=== PATIENT | female | born 1985 | race Caucasian/White ===

== ENCOUNTER 2016-07-24 17:10 | Emergency (ER) | payer SELFPAY ==
[2016-07-24 17:20] VITALS: BP 133/81
[2016-07-24] MEDS ORDERED: Ketorolac 60 MG/2 ML SDV IM ONE (17:24)
--- NOTE | 2016-07-24 17:31 | EDM.PDOC ---
ED HPI Trauma - General Chief Complaint: Upper Extremity Injury/Pain Stated Complaint: PAIN LT WRIST/HAND Time Seen by Provider: 07/24/16 17:15 - History of Present Illness INITIAL COMMENTS - FREE TEXT/NARRATIVE: HISTORY AND PHYSICAL: History of present illness: The patient is a 31-year-old female who presents with complaints of pain to the dorsal aspect of her wrist that started again over the last several days she has had an episode several months ago of the same. The patient denies any injuries several months ago or recently but says that she had the pain during the first episode and it seemed to go away in its own after several days so she did not seek treatment. Patient is right-hand dominant. 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 She does lift her 2 small children frequently and thought that maybe she inadvertently injured herself doing that. Patient came in today with several days of recurrent pain to the dorsal aspect of the left wrist that does not radiate to the hand or of the forearm mostly because she was unable to burr picker her child without pain. She has no neurosensory changes in her hands and no proximal elbow humerus or shoulder pain. She has no systemic complaints of fever chills chest pain or shortness of breath. The patient tried Tylenol only for the pain. Review of systems: As per history of present illness and below otherwise all systems reviewed and negative. Past medical history: As per history of present illness and as reviewed below otherwise noncontributory. Surgical history: As per history of present illness and as reviewed below otherwise noncontributory. Social history: No reported history of drug or alcohol abuse. Family history: As per history of present illness and as reviewed below otherwise noncontributory. Physical exam: General: Well-developed overweight female who is nontoxic and whose vital signs of been reviewed by me. HEENT: Atraumatic, normocephalic, negative for conjunctival pallor or scleral icterus, mucous membranes moist, throat clear, neck supple, nontender, trachea midline. Lungs: Clear to auscultation, breath sounds equal bilaterally, chest nontender. Heart: S1S2, regular rate and rhythm no overt murmurs Abdomen: Soft, nondistended, nontender. NABS .Genitourinary: Deferred. Rectal: Deferred. Extremities: Atraumatic appearing with tenderness to palpation of the dorsal aspect of the wrist without gross soft tissue swelling warmth ecchymosis or crepitus. Neurovascular is intact in the hand and there are no bony deformities appreciated in the wrist or hand. The proximal forearm elbow humerus and shoulder bony architecture is intact and nontender and the soft tissue is nonswollen and nontender. With passive flexion and extension of the wrist the pain is exacerbated with minor range of motion. The patient is able to laterally and medially move the hand more easily without discomfort., Neurovascular unremarkable. Neuro: Awake, alert, oriented. Cranial nerves II through XII unremarkable. Cerebellum unremarkable. Motor and sensory unremarkable throughout. Exam nonfocal. Diagnostics: X-ray left wrist Therapeutics: Toradol--- patient states that although she is allergic to Celebrex she can take Motrin velcro wrist splint Impression: Episodic left wrist pain tetiology unclear Definitive disposition and diagnosis as appropriate pending reevaluation and review of above. Allergies/ADRs: Allergies celecoxib [From Celebrex] Allergy (Verified 07/24/16 17:20) Hives clindamycin Allergy (Verified 07/24/16 17:20) Hives tramadol HCl [From Ultram] Allergy (Verified 07/24/16 17:20) Seizure Home Medications: Ambulatory Orders . [No Known Home Meds] 07/24/16 [Confirmed 07/24/16] Past Medical History - Past Health History Medical/Surgical History: Denies Medical/Surgical History HEENT History: Reports: None Cardiovascular History: Reports: None Respiratory History: Reports: None Gastrointestinal History: Reports: None Genitourinary History: Reports: None WHEEL FITTER History: Reports: 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, Musculoskeletal History: Reports: None Neurological History: Reports: None Psychiatric History: Reports: Addiction, Anxiety, Depression Endocrine/Metabolic History: Reports: None Dermatologic History: Reports: None - Infectious Disease History Infectious Disease History: Reports: Chicken pox Other Infectious Disease History: childhood - Past Surgical History Head Surgeries/Procedures: Reports: None HEENT Surgical History: Reports: None Cardiovascular Surgical History: Reports: None Female Surgical History: Reports: D&C Other Female Surgeries/Procedures: endometriosis Social & Family History - Family History Family Medical History: Noncontributory OBGYN: Reports: 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 Psychiatric: Reports: Anxiety, Depression - Tobacco Use Smoking Status *Q: Current Every Day Smoker Years of Tobacco use: 9 Packs/Tins Daily: 0.3 Second Hand Smoke Exposure: Yes - Caffeine Use Caffeine Use: Reports: None - Recreational Drug Use Recreational Drug Use: No Drug Use in Last 12 Months: No Recreational Drug Type: Reports: Other (see below) Recreational Drug Use Frequency: Not Used In Over 6 Months Recreational Drug Last Use: 2012 Review of Systems - Review of Systems Review Of Systems: ROS reveals no pertinent complaints other than HPI. Trauma Exam - Physical Exam Exam: See Below (See dictation) Course - Vital Signs Last Recorded V/S: Last Vital Signs Temp 36.2 C 07/24/16 17:17 Pulse 102 H 07/24/16 17:17 Resp 16 07/24/16 17:17 BP 133/81 07/24/16 17:17 Pulse Ox 96 07/24/16 17:17 - Orders/Labs/Meds Orders: Active Orders 24 hr Category Date Time Status Wrist Comp Min 3V Lt [CR] Stat Exams 07/24/16 17:24 Taken DME for Discharge [COMM] Stat Oth 07/24/16 18:08 Ordered Meds: Medications Discontinued Medications Generic Name Dose Route Start Last Admin Trade Name Katina PRN Reason Stop Dose Admin Ketorolac Tromethamine 60 mg 07/24/16 17:24 07/24/16 17:29 Toradol IM 07/24/16 17:25 60 mg ONETIME ONE Administration Departure - Departure Time of Disposition: 18:09 Disposition: Home, Self-Care 01 Condition: good Clinical Impression: Wrist pain, left Forms: ED Department Discharge Additional Instructions: The following information is given to patients seen in the emergency department who are being discharged to home. This information is to outline your options for follow-up care. We provide all patients seen in our emergency department with a follow-up referral. The need for follow-up, as well as the timing and circumstances, are variable depending upon the specifics of your emergency department visit. If you don't have a primary care physician on staff, we will provide you with a referral. We always advise you to contact your personal physician following an emergency department visit to inform them of the circumstance of the visit and for follow-up with them and/or the need for any referrals to a consulting specialist. The emergency department will also refer you to a specialist when appropriate. This referral assures that you have the opportunity for followup care with a specialist. All of these measure are taken in an effort to provide you with optimal care, which includes your followup. Under all circumstances we always encourage you to contact your private physician who remains a resource for coordinating your care. When calling for followup care, please make the office aware that this follow-up is from your recent emergency room visit. If for any reason you are refused follow-up, please contact the [facility] emergency department at and ask to speak to the emergency department charge nurse. [facility]--Orthopedic clinic Professional [address] [id number] Please wear splints at all times until you're followed up in the clinic. Ice and elevate as much as possible and use [id number] Tylenol or ibuprofen for pain. Please call and schedule followup with orthopedics Department and return to ER as needed and as discussed - My Orders Last 24 Hours: My Active Orders 07/24/16 17:24 Wrist Comp Min 3V Lt [CR] Stat 07/24/16 18:08 DME for Discharge [COMM] Stat - Assessment/Plan Last 24 Hours: My Active Orders 07/24/16 17:24 Wrist Comp Min 3V Lt [CR] Stat 07/24/16 18:08 DME for Discharge [COMM] Stat
--- NOTE | 2016-07-25 10:41 | CR ---
EXAM DATE: 07/24/16 PATIENT'S AGE: 31 Patient: ERIC BUSTAMANTE Facility: [place], [place] Site . Site : 1985 Study: XRay Extremity wrist [id number]/1/2017 5:48:27 PM Ordering Physician: Jose Aguilar Final Report: INDICATION: pain dorsal wrist, no injury TECHNIQUE: Wrist radiograph 3 views left COMPARISON: None FINDINGS: Bones: Alignment is normal. No acute fractures or aggressive bone lesions identified. In particular, the scaphoid is unremarkable in appearance by radiography. Joint spaces: Unremarkable. The carpal rows are intact. Soft tissues: Unremarkable. No radiopaque foreign bodies are identified. IMPRESSION: 1. No acute osseous injuries are noted. Dictated by: Singh Rebollar MD @ 07/24/2016 17:54:31 (Electronic Signature) Report Signed by Proxy and Original Signed Document filed in the Medical Record. MTDD
== END 2016-07-24 18:23 | disposition home or self-care (01) ==
LOC: MW.ED 17:10
DX: M25.532 Pain in left wrist (principal); F17.210 Nicotine dependence, cigarettes, uncomplicated; Z88.6 Allergy status to analgesic agent; Z88.8 Allergy status to other drugs, medicaments and biological substances
CPT/HCPCS: 73110; 96372; 99283; J1885

== ENCOUNTER 2016-09-12 12:48 | Emergency (ER) | payer MEDICAID, SELFPAY ==
[2016-09-12] MEDS ORDERED: Ketorolac 60 MG/2 ML SDV IM ONE (13:09)
[2016-09-12 13:17] VITALS: BP 175/93
--- NOTE | 2016-09-12 13:21 | EDM.PDOC ---
ED HPI ENT - General Chief Complaint: ENT Problem Stated Complaint: HEADACHE Time Seen by Provider: 09/12/16 13:18 Source of Information: Reports: Patient History Limitations: Reports: No limitations - History of Present Illness INITIAL COMMENTS - FREE TEXT/NARRATIVE: History of present illness: [31-year-old female complaining of acute dental pain into the right lower jaw in the approximate region of 30-31 patient indicates that she feels there it might be an abscess because there swelling and the pain is now beginning to radiate directly bite at tooth. Patient attempted to get into a dentist was unable to be seen until next week at the earliest and desires some treatment to prevent the infection from spreading] Review of systems: As per history of present illness and below otherwise all systems reviewed and negative. Past medical history: As per history of present illness and as reviewed below otherwise noncontributory. Surgical history: As per history of present illness and as reviewed below otherwise noncontributory. Social history: No reported history of drug or alcohol abuse. Family history: As per history of present illness and as reviewed below otherwise noncontributory. Physical exam: HEENT: Atraumatic, normocephalic, pupils reactive, negative for conjunctival pallor or scleral icterus, mucous membranes moist, throat clear, neck supple, nontender, trachea midline. Lungs: Clear to auscultation, breath sounds equal bilaterally, chest nontender. Heart: S1S2, regular, negative for clicks, rubs, or JVD. Abdomen: Soft, nondistended, nontender. Negative for masses or hepatosplenomegaly. Negative for costovertebral tenderness. Pelvis: Stable nontender. Genitourinary: Deferred. Rectal: Deferred. Extremities: Atraumatic, negative for cords or calf pain. Neurovascular unremarkable. Neuro: Awake, alert, oriented. Cranial nerves II through XII unremarkable. Cerebellum unremarkable. Motor and sensory unremarkable throughout. Exam nonfocal. Global assessment is benign save a fractured tooth in the region of 30-31 and has existing filling but the tooth is cracked along the filling site. Now there is swelling and pain at the gum and patient is desiring some medication for same. Exam is consistent with age Diagnostics: [] Therapeutics: [] Impression: [Dental caries] Plan: [Antibiotics brief run of pain med] Definitive disposition and diagnosis as appropriate pending reevaluation and review of above. - Related Data Allergies/ADRs: Allergies Allergy/AdvReac Type Severity Reaction Status Date / Time celecoxib [From Celebrex] Allergy Hives Verified 09/12/16 13:18 clindamycin Allergy Hives Verified 09/12/16 13:18 tramadol HCl [From Ultram] Allergy Seizure Verified 09/12/16 13:18 Home Meds: Home Meds . 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, Musculoskeletal History: Reports: None Neurological History: Reports: None Psychiatric History: Reports: Addiction, Anxiety, Depression Endocrine/Metabolic History: Reports: None Dermatologic History: Reports: None - Infectious Disease History Infectious Disease History: Reports: Chicken pox Other Infectious Disease History: childhood - Past Surgical History Head Surgeries/Procedures: Reports: None HEENT Surgical History: Reports: None Cardiovascular Surgical History: Reports: None Female Surgical History: Reports: D&C Other Female Surgeries/Procedures: endometriosis Social & Family History - Family History Family Medical History: Noncontributory OBGYN: Reports: 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 Psychiatric: Reports: Anxiety, Depression - Tobacco Use Smoking Status *Q: Current Every Day Smoker Years of Tobacco use: 9 Packs/Tins Daily: 0.3 Second Hand Smoke Exposure: Yes - Caffeine Use Caffeine Use: Reports: None - Recreational Drug Use Recreational Drug Use: No Drug Use in Last 12 Months: No Recreational Drug Type: Reports: Other (see below) Recreational Drug Use Frequency: Not Used In Over 6 Months Recreational Drug Last Use: 2012 ED ROS ENT - Review of Systems Review Of Systems: See Below (History of present illness) ED EXAM, ENT - Physical Exam Exam: See Below (History of present illness) Course - Vital Signs Last Recorded V/S: Last Vital Signs Temp 36.7 C 09/12/16 13:16 Pulse 107 H 09/12/16 13:16 Resp 18 09/12/16 13:16 BP 175/93 H 09/12/16 13:16 Pulse Ox 98 09/12/16 13:16 - Orders/Labs/Meds Meds: Medications Discontinued Medications Generic Name Dose Route Start Last Admin Trade Name Freq PRN Reason Stop Dose Admin Ketorolac Tromethamine 60 mg 09/12/16 13:09 Toradol IM 09/12/16 13:10 ONETIME ONE Departure - Departure Time of Disposition: 13:20 Disposition: Home, Self-Care 01 Condition: good Clinical Impression: Dental abscess Forms: ED Department Discharge Additional Instructions: The following information is given to patients seen in the emergency department who are being discharged to home. This information is to outline your options for follow-up care. We provide all patients seen in our emergency department with a follow-up referral. The need for follow-up, as well as the timing and circumstances, are variable depending upon the specifics of your emergency department visit. If you don't have a primary care physician on staff, we will provide you with a referral. We always advise you to contact your personal physician following an emergency department visit to inform them of the circumstance of the visit and for follow-up with them and/or the need for any referrals to a consulting specialist. The emergency department will also refer you to a specialist when appropriate. This referral assures that you have the opportunity for follow-up care with a specialist. All of these measure are taken in an effort to provide you with optimal care, which includes your follow-up. Under all circumstances we always encourage you to contact your private physician who remains a resource for coordinating your care. When calling for follow-up care, please make the office aware that this follow-up is from your recent emergency room visit. If for any reason you are refused follow-up, please contact the [facility] Emergency Department at and asked to speak to the emergency department charge nurse. Medication as directed Followup with the dentist as soon as possible return to ED as needed as discussed
== END 2016-09-12 13:49 | disposition home or self-care (01) ==
LOC: MW.ED 12:48
DX: K04.7 Periapical abscess without sinus (principal); K02.9 Dental caries, unspecified; F41.8 Other specified anxiety disorders; F17.210 Nicotine dependence, cigarettes, uncomplicated; Z88.1 Allergy status to other antibiotic agents; Z88.5 Allergy status to narcotic agent
CPT/HCPCS: 96372; 99283; J1885

== ENCOUNTER 2016-10-30 13:39 | Emergency (ER) | payer SELFPAY ==
--- NOTE | 2016-10-30 14:41 | EDM.PDOC ---
ED HPI GENERAL MEDICAL PROBLEM - General Chief Complaint: ENT Problem Stated Complaint: RIGHT EARACHE Time Seen by Provider: 10/30/16 14:40 Source of Information: Reports: Patient History Limitations: Reports: No Limitations - History of Present Illness INITIAL COMMENTS - FREE TEXT/NARRATIVE: HISTORY AND PHYSICAL: []31-year-old female presenting with right ear pain that started 2 hours ago now is extending over her whole head History of Present Illness: [2 Hours ago pain started, denies any trauma] Review of Systems: As per history of present illness and below otherwise all systems reviewed and negative. Past medical history: As per history of present illness and as reviewed below otherwise noncontributory. Surgical history: As per history of present illness and as reviewed below otherwise noncontributory. Social history: No reported history of drug or alcohol abuse. Family history: As per history of present illness and as reviewed below otherwise noncontributory. Physical exam: Alert and oriented female who looks slightly distressed holding her hand over her right ear HEENT: Atraumatic, normocehpalic, pupils reactive, negative for conjunctival pallor or scleral icterus, mucous membranes moist, throat clear, neck supple, nontender, trachea midline. Tympanic membrane without erythema posterior canal with a small cystic area minor pustular top Lungs: Clear to auscultation, breath sounds equal bilaterally, chest non tender. Heart: S1S2, regular, negative for clicks, rubs, or JVD. Abdomen: Soft, nondistended, nontender. Negative for masses or hepatossplenmegaly. Negative for costovertebral tenderness. Pelvis: Stable nontender. Genitourinary: Deferred. Rectal: Deferred Extremities: Atraumatic, negative for cords or calf pain. Neurovascular unremarkable. Neuro: Awake, alert, oriented. Cranial nerves II through XII unremarkable. Cerebellum unremarkable. Motor and sensory unremarkable throughout. Exam nonfocal. Diagnostics: [] Therapeutics: [] Impression: [Lesion auditory canal] Plan: [Cephalexin antibiotic therapy Cortisporin Otic drops ] Definitive disposition and diagnosis as appropriate pending reevaluation and review of above. Onset: Today, Sudden Duration: Hour(s): (2) Location: Reports: Other (right ear) Quality: Reports: Ache, Stabbing Severity: Moderate Improves with: Reports: None Worsens with: Reports: None - Related Data Allergies Allergy/AdvReac Type Severity Reaction Status Date / Time celecoxib [From Celebrex] Allergy Hives Verified 10/30/16 14:25 clindamycin Allergy Hives Verified 10/30/16 14:25 tramadol HCl [From Ultram] Allergy Seizure Verified 10/30/16 14:25 Home Meds: Home Meds Cephalexin [IMW: Cephalexin] 500 mg PO TID #30 cap 10/30/16 [Rx] Hydrocort/Neomycin/Polymyxin B [Cortisporin Otic Soln] 10 ml EARRT Q6HR #1 bottle 10/30/16 [Rx] Past Medical History - Past Health History Medical/Surgical History: Denies Medical/Surgical History HEENT History: Reports: None Cardiovascular History: Reports: None Respiratory History: Reports: None Gastrointestinal History: Reports: None Genitourinary History: Reports: None 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, Musculoskeletal History: Reports: None Neurological History: Reports: None Psychiatric History: Reports: Addiction, Anxiety, Depression Endocrine/Metabolic History: Reports: None Dermatologic History: Reports: None - Infectious Disease History Infectious Disease History: Reports: Chicken Pox Other Infectious Disease History: childhood - Past Surgical History Head Surgeries/Procedures: Reports: None HEENT Surgical History: Reports: None Cardiovascular Surgical History: Reports: None Female Surgical History: Reports: D&C Other Female Surgeries/Procedures: endometriosis Social & Family History - Family History Family Medical History: Noncontributory OBGYN: Reports: 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 Psychiatric: Reports: Anxiety, Depression - Tobacco Use Smoking Status *Q: Current Every Day Smoker Years of Tobacco use: 9 Packs/Tins Daily: 0.3 Second Hand Smoke Exposure: Yes - Caffeine Use Caffeine Use: Reports: None - Recreational Drug Use Recreational Drug Use: No Drug Use in Last 12 Months: No Recreational Drug Type: Reports: Other (see below) Recreational Drug Use Frequency: Not Used In Over 6 Months Recreational Drug Last Use: 2012 ED ROS ENT - Review of Systems Review Of Systems: ROS reveals no pertinent complaints other than HPI. ED EXAM, ENT - Physical Exam Exam: See Below (see dictation) Departure - Departure Time of Disposition: 14:44 Disposition: Home, Self-Care 01 Condition: good Clinical Impression: Otitis externa Qualifiers: Otitis externa type: unspecified type Chronicity: acute Laterality: right Qualified Code(s): H60.501 - Unspecified acute noninfective otitis externa, right ear - Discharge Information Prescriptions: Hydrocort/Neomycin/Polymyxin B [Cortisporin Otic Soln] 10 ml EARRT Q6HR #1 bottle Cephalexin [IMW: Cephalexin] 500 mg PO TID #30 cap Forms: ED Department Discharge Additional Instructions: The following information is given to patients seen in the emergency department who are being discharged to home. This information is to outline your options for follow-up care. We provide all patients seen in our emergency department with a follow-up referral. The need for follow-up, as well as the timing and circumstances, are variable depending upon the specifics of your emergency department visit. If you don't have a primary care physician on staff, we will provide you with a referral. We always advise you to contact your personal physician following an emergency department visit to inform them of the circumstance of the visit and for follow-up with them and/or the need for any referrals to a consulting specialist. The emergency department will also refer you to a specialist when appropriate. This referral assures that you have the opportunity for followup care with a specialist. All of these measure are taken in an effort to provide you with optimal care, which includes your followup. Under all circumstances we always encourage you to contact your private physician who remains a resource for coordinating your care. When calling for followup care, please make the office aware that this follow-up is from your recent emergency room visit. If for any reason you are refused follow-up, please contact the [facility] emergency department at and asked to speak to the emergency department charge nurse. Medication has been electronically sent to [facility] at [facility] Follow-up next week with your primary care provider
[2016-10-30 15:02] VITALS: BP 143/92
== END 2016-10-30 15:01 | disposition home or self-care (01) ==
LOC: MW.ED 13:39
DX: H60.501 Unspecified acute noninfective otitis externa, right ear (principal); F41.9 Anxiety disorder, unspecified; F32.9 Major depressive disorder, single episode, unspecified; F17.210 Nicotine dependence, cigarettes, uncomplicated; Z88.1 Allergy status to other antibiotic agents; Z88.5 Allergy status to narcotic agent
CPT/HCPCS: 99282; 99283

== ENCOUNTER 2016-12-12 09:41 | Emergency (ER) | payer SELFPAY ==
[2016-12-12] MEDS ORDERED: Sodium Chloride 0.9% 1,000 ML IV STA (10:31)
--- NOTE | 2016-12-12 10:53 | EDM.PDOC ---
ED HPI GENERAL MEDICAL PROBLEM - General Chief Complaint: CREATIVE SERVICES DIRECTOR Problem Stated Complaint: PELIVIC PAIN Time Seen by Provider: 12/12/16 09:43 Source of Information: Reports: Patient History Limitations: Reports: No Limitations - History of Present Illness INITIAL COMMENTS - FREE TEXT/NARRATIVE: History of present illness: []Patient starting having sharp right lower quadrant pain radiating from her right flank yesterday that has been worsening today. She also states she has an abnormal vaginal discharge. She denies being on her period, nausea, vomiting or diarrhea. Patient states she feels feverish but has not measured a temperature. Patient has had kidney stones in the past and she states it feels similar. Review of systems: As per history of present illness and below otherwise all systems reviewed and negative. Past medical history: As per history of present illness and as reviewed below otherwise noncontributory. Surgical history: As per history of present illness and as reviewed below otherwise noncontributory. Social history: No reported history of drug or alcohol abuse. Family history: As per history of present illness and as reviewed below otherwise noncontributory. Physical exam: General: Well developed, well nourished in NAD HEENT: Atraumatic, normocephalic, pupils reactive, negative for conjunctival pallor or scleral icterus, mucous membranes moist, throat clear, neck supple, nontender, trachea midline. Lungs: Clear to auscultation, breath sounds equal bilaterally, chest nontender. Heart: S1S2, regular, negative for clicks, rubs, or JVD. Abdomen: Soft, nondistended, nontender. Negative for masses or hepatosplenomegaly. Negative for costovertebral tenderness. Pelvis: Stable nontender. Genitourinary: Positive greenish brown drainage and marked cervical motion tenderness and no bleeding no adnexal masses were appreciated however patient is heavy and was difficult to assess. Rectal: Deferred. Extremities: Atraumatic, negative for cords or calf pain. Neurovascular unremarkable. Neuro: Awake, alert, oriented. Cranial nerves II through XII unremarkable. Cerebellum unremarkable. Motor and sensory unremarkable throughout. Exam nonfocal. Diagnostics: []Exam showing PID labs with elevated white count otherwise normal Therapeutics: []Ceftriaxone and Zithromax given in the ED Impression: []PID Plan: []", Motrin for pain warm packs to abdomen Definitive disposition and diagnosis as appropriate pending reevaluation and review of above. Right Lower Abdomen Pain Score (Numeric/FACES): 5 - Related Data Allergies Allergy/AdvReac Type Severity Reaction Status Date / Time tramadol HCl [From [facility]] Allergy Seizure Verified 10/30/16 14:25 Home Meds: Home Meds ALPRAZolam [Xanax] 1 mg BID PRN 12/12/16 [History] Acetaminophen 500 mg PRN 12/12/16 [History] Control Pill 12/12/16 [History] Metoprolol Tartrate [Lopressor] 50 mg BID 12/12/16 [History] buPROPion HCl [Wellbutrin SR] 150 mg DAILY 12/12/16 [History] Past Medical History - Past Health History Medical/Surgical History: Denies Medical/Surgical History HEENT History: Reports: None Cardiovascular History: Reports: Hypertension Respiratory History: Reports: None Gastrointestinal History: Reports: None Genitourinary History: Reports: None CREATIVE SERVICES DIRECTOR History: Reports: 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, Musculoskeletal History: Reports: None Neurological History: Reports: None Psychiatric History: Reports: Addiction, Anxiety, Depression Endocrine/Metabolic History: Reports: None Hematologic History: Reports: None Immunologic History: Reports: None Oncologic (Cancer) History: Reports: None Dermatologic History: Reports: None - Infectious Disease History Infectious Disease History: Reports: MRSA Other Infectious Disease History: childhood - Past Surgical History Head Surgeries/Procedures: Reports: None HEENT Surgical History: Reports: None Cardiovascular Surgical History: Reports: None Female Surgical History: Reports: D&C Other Female Surgeries/Procedures: endometriosis, kidney infections Social & Family History - Family History Family Medical History: Noncontributory OBGYN: Reports: 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 Psychiatric: Reports: Anxiety, Depression - Tobacco Use Smoking Status *Q: Light Tobacco Smoker Years of Tobacco use: 9 Packs/Tins Daily: 0.2 Second Hand Smoke Exposure: Yes - Caffeine Use Caffeine Use: Reports: None - Recreational Drug Use Recreational Drug Use: No Drug Use in Last 12 Months: No Recreational Drug Type: Reports: Other (see below) Recreational Drug Use Frequency: Not Used In Over 6 Months Recreational Drug Last Use: 2012 ED ROS GENERAL - Review of Systems Review Of Systems: See Below (See history of present illness) ED EXAM, RENAL/ - Physical Exam Exam: See Below (See history of present illness) Course - Vital Signs Last Recorded V/S: Last Vital Signs Temp 36.1 C 12/12/16 10:00 Pulse 87 12/12/16 13:24 Resp 18 12/12/16 13:24 BP 117/84 12/12/16 13:24 Pulse Ox 97 12/12/16 13:24 - Orders/Labs/Meds Orders: Active Orders 24 hr Category Date Time Status CHLAMYDIA TRACHOMATIS/GC AMPLF Stat Lab 12/12/16 12:05 Received Labs: Laboratory Tests 12/12/16 12/12/16 12/12/16 Range/Units 10:30 10:30 11:05 WBC 13.75 H (4.0-11.0) K/uL RBC 4.34 (4.30-5.90) M/uL Hgb 13.5 (12.0-16.0) g/dL Hct 40.9 (36.0-46.0) % MCV 94.2 (80.0-98.0) fL MCH 31.1 (27.0-32.0) pg MCHC 33.0 (31.0-37.0) g/dL RDW Std Deviation 45.8 (28.0-62.0) fl RDW Coeff of Yanelis 13 (11.0-15.0) % Plt Count 296 (150-400) K/uL MPV 9.80 (7.40-12.00) fL Neut % (Auto) 66.8 (48.0-80.0) % Lymph % (Auto) 24.4 (16.0-40.0) % [place] % (Auto) 6.3 (0.0-15.0) % Eos % (Auto) 2.4 (0.0-7.0) % Baso % (Auto) 0.1 (0.0-1.5) % Neut # (Auto) 9.2 H (1.4-5.7) K/uL Lymph # (Auto) 3.4 H (0.6-2.4) K/uL [place] # (Auto) 0.9 H (0.0-0.8) K/uL Eos # (Auto) 0.3 (0.0-0.7) K/uL Baso # (Auto) 0.0 (0.0-0.1) K/uL Nucleated RBC % 0.0 /100WBC Nucleated RBCs # 0 K/uL Sodium (136-146) mmol/L Potassium (3.5-5.1) mmol/L Chloride (98-110) mmol/L Carbon Dioxide (21-31) mmol/L BUN (6.0-23.0) mg/dL Creatinine (0.6-1.5) mg/dL Est Cr Clr Drug Dosing mL/min Estimated GFR (MDRD) ml/min Glucose (60-110) mg/dL Calcium (8.8-10.8) mg/dL Total Bilirubin (0.1-1.5) mg/dL AST (5-40) IU/L ALT (8-54) IU/L Alkaline Phosphatase (40-150) Total Protein (6.0-8.0) g/dL Albumin (3.5-5.0) g/dL Globulin (2.0-3.5) g/dL Albumin/Globulin Ratio (1.3-2.8) Lipase (7-80) U/L Urine Color YELLOW Urine Appearance CLEAR Urine pH 6.0 (5.0-8.0) Ur Specific [place] 1.025 (1.001-1.035) Urine Protein NEGATIVE (NEGATIVE) mg/dL Urine Glucose (UA) NEGATIVE (NEGATIVE) mg/dL Urine Ketones NEGATIVE (NEGATIVE) mg/dL Urine Occult Blood SMALL H (NEGATIVE) Urine Nitrite NEGATIVE (NEGATIVE) Urine Bilirubin NEGATIVE (NEGATIVE) Urine Urobilinogen 0.2 (<2.0) EU/dL Ur Leukocyte Esterase NEGATIVE (NEGATIVE) Urine RBC 2-3 (0-2/HPF) Urine WBC 0-2 (0-5/HPF) Ur Epithelial Cells OCCASIONAL (NONE-FEW) Amorphous Sediment NOT SEEN (NEGATIVE) Urine Bacteria NOT SEEN (NEGATIVE) Urine Mucus NOT SEEN (NONE-MOD) Urine HCG, Qual NEGATIVE (NEGATIVE) Yolie species DNA (NEGATIVE) Gardnerella DNA Probe Trichomonas DNA Probe (NEGATIVE) 12/12/16 12/12/16 Range/Units 11:05 12:05 WBC (4.0-11.0) K/uL RBC (4.30-5.90) M/uL Hgb (12.0-16.0) g/dL Hct (36.0-46.0) % MCV (80.0-98.0) fL MCH (27.0-32.0) pg MCHC (31.0-37.0) g/dL RDW Std Deviation (28.0-62.0) fl RDW Coeff of Yanelis (11.0-15.0) % Plt Count (150-400) K/uL MPV (7.40-12.00) fL Neut % (Auto) (48.0-80.0) % Lymph % (Auto) (16.0-40.0) % [place] % (Auto) (0.0-15.0) % Eos % (Auto) (0.0-7.0) % Baso % (Auto) (0.0-1.5) % Neut # (Auto) (1.4-5.7) K/uL Lymph # (Auto) (0.6-2.4) K/uL [place] # (Auto) (0.0-0.8) K/uL Eos # (Auto) (0.0-0.7) K/uL Baso # (Auto) (0.0-0.1) K/uL Nucleated RBC % /100WBC Nucleated RBCs # K/uL Sodium 138 (136-146) mmol/L Potassium 4.2 (3.5-5.1) mmol/L Chloride 105 (98-110) mmol/L Carbon Dioxide 24 (21-31) mmol/L BUN 11 (6.0-23.0) mg/dL Creatinine 0.8 (0.6-1.5) mg/dL Est Cr Clr Drug Dosing 101.84 mL/min Estimated GFR (MDRD) > 60.0 ml/min Glucose 100 (60-110) mg/dL Calcium 9.5 (8.8-10.8) mg/dL Total Bilirubin 0.3 (0.1-1.5) mg/dL AST 15 (5-40) IU/L ALT 23 (8-54) IU/L Alkaline Phosphatase 80 (40-150) Total Protein 7.5 (6.0-8.0) g/dL Albumin 3.8 (3.5-5.0) g/dL Globulin 3.7 H (2.0-3.5) g/dL Albumin/Globulin Ratio 1.0 L (1.3-2.8) Lipase 35 (7-80) U/L Urine Color Urine Appearance Urine pH (5.0-8.0) Ur Specific [place] (1.001-1.035) Urine Protein (NEGATIVE) mg/dL Urine Glucose (UA) (NEGATIVE) mg/dL Urine Ketones (NEGATIVE) mg/dL Urine Occult Blood (NEGATIVE) Urine Nitrite (NEGATIVE) Urine Bilirubin (NEGATIVE) Urine Urobilinogen (<2.0) EU/dL Ur Leukocyte Esterase (NEGATIVE) Urine RBC (0-2/HPF) Urine WBC (0-5/HPF) Ur Epithelial Cells (NONE-FEW) Amorphous Sediment (NEGATIVE) Urine Bacteria (NEGATIVE) Urine Mucus (NONE-MOD) Urine HCG, Qual (NEGATIVE) Yolie species DNA NEGATIVE (NEGATIVE) Gardnerella DNA Probe NEGATIVE Trichomonas DNA Probe NEGATIVE (NEGATIVE) Meds: Medications Discontinued Medications Generic Name Dose Route Start Last Admin Trade Name Freq PRN Reason Stop Dose Admin Azithromycin 1,000 mg 12/12/16 12:09 12/12/16 12:27 Zithromax PO 12/12/16 12:10 1,000 mg Q24H ONE Administration Sodium Chloride 1,000 mls @ 999 mls/hr 12/12/16 10:31 12/12/16 10:51 Normal Saline IV 12/12/16 11:31 999 mls/hr NOW STA Administration Ceftriaxone Sodium 500 mg/ 50 mls @ 100 mls/hr 12/12/16 12:09 12/12/16 12:28 Sodium Chloride IV 12/12/16 12:38 100 mls/hr ONETIME ONE Administration Ketorolac Tromethamine 30 mg 12/12/16 12:09 12/12/16 12:18 Toradol IVPUSH 12/12/16 12:10 30 mg ONETIME ONE Administration Morphine Sulfate 4 mg 12/12/16 12:48 12/12/16 12:55 Morphine IVPUSH 12/12/16 12:49 4 mg ONETIME ONE Administration Departure - Departure Time of Disposition: 13:45 Disposition: Home, Self-Care 01 Preliminary Cause of *Q: Other_Special Instruction Condition: Good Clinical Impression: PID (acute pelvic inflammatory disease) - Discharge Information Instructions: Pelvic Inflammatory Disease, [id number] Referrals: Faye Mixon DO [Primary Care Provider] - Forms: ED Department Discharge Additional Instructions: The following information is given to patients seen in the emergency department who are being discharged to home. This information is to outline your options for follow-up care. We provide all patients seen in our emergency department with a follow-up referral. The need for follow-up, as well as the timing and circumstances, are variable depending upon the specifics of your emergency department visit. If you don't have a primary care physician on staff, we will provide you with a referral. We always advise you to contact your personal physician following an emergency department visit to inform them of the circumstance of the visit and for follow-up with them and/or the need for any referrals to a consulting specialist. The emergency department will also refer you to a specialist when appropriate. This referral assures that you have the opportunity for follow-up care with a specialist. All of these measure are taken in an effort to provide you with optimal care, which includes your follow-up. Under all circumstances we always encourage you to contact your private physician who remains a resource for coordinating your care. When calling for follow-up care, please make the office aware that this follow-up is from your recent emergency room visit. If for any reason you are refused follow-up, please contact the [facility] Emergency Department at and asked to speak to the emergency department charge nurse. You have been completely treated for PID. Use Motrin or Tylenol and warm packs to lower abdomen for comfort. Follow-up with your CREATIVE SERVICES DIRECTOR here if any symptoms change or worsen [facility] Primary Care - Women's Health [address] [place] [id number] - My Orders Last 24 Hours: My Active Orders 12/12/16 12:05 CHLAMYDIA TRACHOMATIS/GC AMPLF Stat - Assessment/Plan Last 24 Hours: My Active Orders 12/12/16 12:05 CHLAMYDIA TRACHOMATIS/GC AMPLF Stat
[2016-12-12 11:46] LABS: CHLORIDE,CL 105 mmol/L (98-110); SODIUM,NA 138 mmol/L (136-146)
[2016-12-12] MEDS ORDERED: Azithromycin 250 MG Tab PO ONE (12:09)
[2016-12-12] MEDS ORDERED: Ketorolac 30 MG/ML SDV IVPUSH ONE (12:09)
[2016-12-12] MEDS ORDERED: cefTRIAXone 500 MG in Sodium Chloride 0.9% 50 ML IV ONE (12:09)
[2016-12-12] MEDS ORDERED: Morphine 2 MG/ML Syringe IVPUSH ONE (12:48)
[2016-12-12] MEDS ORDERED: Famotidine 20 MG/2 ML SDV IVPUSH ONE (12:50)
[2016-12-12 13:28] VITALS: BP 117/84
== END 2016-12-12 13:23 | disposition home or self-care (01) ==
LOC: MW.ED 09:41
DX: N73.0 Acute parametritis and pelvic cellulitis (principal); I10 Essential (primary) hypertension; F41.9 Anxiety disorder, unspecified; F32.9 Major depressive disorder, single episode, unspecified; F17.210 Nicotine dependence, cigarettes, uncomplicated; Z79.899 Other long term (current) drug therapy; Z88.5 Allergy status to narcotic agent
CPT/HCPCS: 36415; 80053; 81001; 81025; 83690; 85025; 87480; 87491; 87510; 87591; 87660; 96361; 96365; 96375; 99284; A9270; J0696; J1885; J2270; J7040; J7050

== ENCOUNTER 2016-12-14 12:01 | Emergency (ER) | payer SELFPAY ==
[2016-12-14 13:41] LABS: CHLORIDE,CL 106 mmol/L (98-110); SODIUM,NA 140 mmol/L (136-146)
[2016-12-14] MEDS ORDERED: Iopamidol 755 Mg/ML 100 ML Bottle IVPUSH STA (17:21)
[2016-12-14] MEDS ORDERED: Ketorolac 30 MG/ML SDV IVPUSH ONE (17:24)
[2016-12-14] MEDS ORDERED: Morphine 4 MG/ML Syringe IVPUSH ONE (17:45)
--- NOTE | 2016-12-14 18:05 | EDM.PDOC ---
[id number]: LOWER ABDOMINAL PAIN Time Seen by Provider: 12/14/16 12:30 Source of Information: Reports: Patient History Limitations: Reports: No Limitations - History of Present Illness INITIAL COMMENTS - FREE TEXT/NARRATIVE: History of present illness: []I saw this patient earlier this week and diagnosed with PID. She has not followed up with TRIM SETTER HELPER and continues to have lower abdominal pain. Patient states she has no new symptoms that she did note that when she urinated she heard a clump of mucus hit the toilet. She denies any vaginal bleeding, vomiting, diarrhea or fevers. Review of systems: As per history of present illness and below otherwise all systems reviewed and negative. Past medical history: As per history of present illness and as reviewed below otherwise noncontributory. Surgical history: As per history of present illness and as reviewed below otherwise noncontributory. Social history: No reported history of drug or alcohol abuse. Family history: As per history of present illness and as reviewed below otherwise noncontributory. Physical exam: General: Well developed, well nourished in NAD HEENT: Atraumatic, normocephalic, pupils reactive, negative for conjunctival pallor or scleral icterus, mucous membranes moist, throat clear, neck supple, nontender, trachea midline. Lungs: Clear to auscultation, breath sounds equal bilaterally, chest nontender. Heart: S1S2, regular, negative for clicks, rubs, or JVD. Abdomen: Soft, nondistended, tender in the right lower quadrant to suprapubic area no rebound or guarding. Negative for masses or hepatosplenomegaly. Negative for costovertebral tenderness. Pelvis: Stable nontender. Genitourinary: Deferred. Rectal: Deferred. Extremities: Atraumatic, negative for cords or calf pain. Neurovascular unremarkable. Neuro: Awake, alert, oriented. Cranial nerves II through XII unremarkable. Cerebellum unremarkable. Motor and sensory unremarkable throughout. Exam nonfocal. Diagnostics: []CT abdomen negative Therapeutics: []Patient was given 4 morphine for pain Impression: []PID with lower abdominal pain Plan: []Tyro 12 tablets, no refills take as directed warm packs to abdomen, Motrin for pain follow-up with CREEL CLERK Definitive disposition and diagnosis as appropriate pending reevaluation and review of above. - Related Data Allergies Allergy/AdvReac Type Severity Reaction Status Date / Time tramadol HCl [From Ultr[facility]] Allergy Seizure Verified 12/14/16 12:43 Home Meds: Home Meds ALPRAZolam [Xanax] 1 mg PO BID PRN 12/12/16 [History] Acetaminophen 500 mg PRN 12/12/16 [History] Control Pill DAILY 12/12/16 [History] Metoprolol Tartrate [Lopressor] 50 mg PO BID 12/12/16 [History] buPROPion HCl [Wellbutrin SR] 150 mg PO DAILY 12/12/16 [History] Past Medical History - Past Health History Medical/Surgical History: Denies Medical/Surgical History HEENT History: Reports: None Cardiovascular History: Reports: Hypertension Respiratory History: Reports: None Gastrointestinal History: Reports: None Genitourinary History: Reports: None LAMINATOR History: Reports: 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, Musculoskeletal History: Reports: None Neurological History: Reports: None Psychiatric History: Reports: Addiction, Anxiety, Depression Endocrine/Metabolic History: Reports: None Hematologic History: Reports: None Immunologic History: Reports: None Oncologic (Cancer) History: Reports: None Dermatologic History: Reports: None - Infectious Disease History Infectious Disease History: Reports: MRSA Other Infectious Disease History: childhood - Past Surgical History Head Surgeries/Procedures: Reports: None HEENT Surgical History: Reports: None Cardiovascular Surgical History: Reports: None GI Surgical History: Reports: Other (See Below) Other GI Surgeries/Procedures: Explor lap Female Surgical History: Reports: D&C, Other (See Below) Other Female Surgeries/Procedures: endometriosis, kidney infections Social & Family History - Family History Family Medical History: Noncontributory OBGYN: Reports: 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 Psychiatric: Reports: Anxiety, Depression - Tobacco Use Smoking Status *Q: Current Every Day Smoker Years of Tobacco use: 9 Packs/Tins Daily: 1 Second Hand Smoke Exposure: Yes - Caffeine Use Caffeine Use: Reports: None - Recreational Drug Use Recreational Drug Use: No Drug Use in Last 12 Months: No Recreational Drug Type: Reports: Other (see below) Recreational Drug Use Frequency: Not Used In Over 6 Months Recreational Drug Last Use: 2012 ED ROS GENERAL - Review of Systems Review Of Systems: See Below (See history of present illness) ED EXAM, GI/ABD - Physical Exam Exam: See Below (See history of present illness) Course - Vital Signs Last Recorded V/S: Last Vital Signs Temp 36.9 C 12/14/16 12:46 Pulse 84 12/14/16 12:46 Resp 18 12/14/16 12:46 BP 133/64 12/14/16 12:46 Pulse Ox - Orders/Labs/Meds Orders: Active Orders 24 hr Category Date Time Status EKG Documentation Completion [RC] STAT Care 12/14/16 12:57 Active Abdomen Pelvis w Cont [CT] Stat Exams 12/14/16 15:59 Taken Saline Lock Insert [OM.PC] Stat Oth 12/14/16 12:57 Ordered Labs: Laboratory Tests 12/14/16 12/14/16 12/14/16 Range/Units 13:08 13:08 16:27 WBC 13.28 H (4.0-11.0) K/uL RBC 4.22 L (4.30-5.90) M/uL Hgb 13.2 (12.0-16.0) g/dL Hct 39.8 (36.0-46.0) % MCV 94.3 (80.0-98.0) fL MCH 31.3 (27.0-32.0) pg MCHC 33.2 (31.0-37.0) g/dL RDW Std Deviation 45.8 (28.0-62.0) fl RDW Coeff of Yanelis 13 (11.0-15.0) % Plt Count 290 (150-400) K/uL MPV 9.50 (7.40-12.00) fL Neut % (Auto) 68.2 (48.0-80.0) % Lymph % (Auto) 23.3 (16.0-40.0) % [place] % (Auto) 5.4 (0.0-15.0) % Eos % (Auto) 2.9 (0.0-7.0) % Baso % (Auto) 0.2 (0.0-1.5) % Neut # (Auto) 9.1 H (1.4-5.7) K/uL Lymph # (Auto) 3.1 H (0.6-2.4) K/uL [place] # (Auto) 0.7 (0.0-0.8) K/uL Eos # (Auto) 0.4 (0.0-0.7) K/uL Baso # (Auto) 0.0 (0.0-0.1) K/uL Nucleated RBC % 0.0 /100WBC Nucleated RBCs # 0 K/uL Sodium 140 (136-146) mmol/L Potassium 4.2 (3.5-5.1) mmol/L Chloride 106 (98-110) mmol/L Carbon Dioxide 26 (21-31) mmol/L BUN 9 (6.0-23.0) mg/dL Creatinine 0.8 (0.6-1.5) mg/dL Est Cr Clr Drug Dosing 101.84 mL/min Estimated GFR (MDRD) > 60.0 ml/min Glucose 97 (60-110) mg/dL Calcium 9.5 (8.8-10.8) mg/dL Total Bilirubin 0.4 (0.1-1.5) mg/dL AST 31 (5-40) IU/L ALT 42 (8-54) IU/L Alkaline Phosphatase 90 (40-150) Total Protein 7.4 (6.0-8.0) g/dL Albumin 3.9 (3.5-5.0) g/dL Globulin 3.5 (2.0-3.5) g/dL Albumin/Globulin Ratio 1.1 L (1.3-2.8) Lipase 29 (7-80) U/L Urine Color Urine Appearance Urine pH (5.0-8.0) Ur Specific [place] (1.001-1.035) Urine Protein (NEGATIVE) mg/dL Urine Glucose (UA) (NEGATIVE) mg/dL Urine Ketones (NEGATIVE) mg/dL Urine Occult Blood (NEGATIVE) Urine Nitrite (NEGATIVE) Urine Bilirubin (NEGATIVE) Urine Urobilinogen (<2.0) EU/dL Ur Leukocyte Esterase (NEGATIVE) Urine RBC (0-2/HPF) Urine WBC (0-5/HPF) Ur Epithelial Cells (NONE-FEW) Urine Bacteria (NEGATIVE) Urine HCG, Qual NEGATIVE (NEGATIVE) 12/14/16 Range/Units 16:27 WBC (4.0-11.0) K/uL RBC (4.30-5.90) M/uL Hgb (12.0-16.0) g/dL Hct (36.0-46.0) % MCV (80.0-98.0) fL MCH (27.0-32.0) pg MCHC (31.0-37.0) g/dL RDW Std Deviation (28.0-62.0) fl RDW Coeff of Yanelis (11.0-15.0) % Plt Count (150-400) K/uL MPV (7.40-12.00) fL Neut % (Auto) (48.0-80.0) % Lymph % (Auto) (16.0-40.0) % [place] % (Auto) (0.0-15.0) % Eos % (Auto) (0.0-7.0) % Baso % (Auto) (0.0-1.5) % Neut # (Auto) (1.4-5.7) K/uL Lymph # (Auto) (0.6-2.4) K/uL [place] # (Auto) (0.0-0.8) K/uL Eos # (Auto) (0.0-0.7) K/uL Baso # (Auto) (0.0-0.1) K/uL Nucleated RBC % /100WBC Nucleated RBCs # K/uL Sodium (136-146) mmol/L Potassium (3.5-5.1) mmol/L Chloride (98-110) mmol/L Carbon Dioxide (21-31) mmol/L BUN (6.0-23.0) mg/dL Creatinine (0.6-1.5) mg/dL Est Cr Clr Drug Dosing mL/min Estimated GFR (MDRD) ml/min Glucose (60-110) mg/dL Calcium (8.8-10.8) mg/dL Total Bilirubin (0.1-1.5) mg/dL AST (5-40) IU/L ALT (8-54) IU/L Alkaline Phosphatase (40-150) Total Protein (6.0-8.0) g/dL Albumin (3.5-5.0) g/dL Globulin (2.0-3.5) g/dL Albumin/Globulin Ratio (1.3-2.8) Lipase (7-80) U/L Urine Color YELLOW Urine Appearance CLEAR Urine pH 6.5 (5.0-8.0) Ur Specific [place] 1.015 (1.001-1.035) Urine Protein NEGATIVE (NEGATIVE) mg/dL Urine Glucose (UA) NEGATIVE (NEGATIVE) mg/dL Urine Ketones NEGATIVE (NEGATIVE) mg/dL Urine Occult Blood TRACE-LYSED (NEGATIVE) Urine Nitrite NEGATIVE (NEGATIVE) Urine Bilirubin NEGATIVE (NEGATIVE) Urine Urobilinogen 0.2 (<2.0) EU/dL Ur Leukocyte Esterase TRACE (NEGATIVE) Urine RBC 0-1 (0-2/HPF) Urine WBC 0-1 (0-5/HPF) Ur Epithelial Cells OCCASIONAL (NONE-FEW) Urine Bacteria RARE (NEGATIVE) Urine HCG, Qual (NEGATIVE) Meds: Medications Discontinued Medications Generic Name Dose Route Start Last Admin Trade Name Katina PRN Reason Stop Dose Admin Iopamidol 100 ml 12/14/16 17:21 12/14/16 17:21 Isovue-370 (76%) IVPUSH 12/14/16 17:22 100 ml ONETIME STA Administration Ketorolac Tromethamine 30 mg 12/14/16 17:24 Toradol IVPUSH 12/14/16 17:25 ONETIME ONE Morphine Sulfate 4 mg 12/14/16 17:45 12/14/16 17:50 Morphine IVPUSH 12/14/16 17:46 4 mg ONETIME ONE Administration Departure - Departure Time of Disposition: 18:03 Disposition: Home, Self-Care 01 Condition: Good Clinical Impression: PID (acute pelvic inflammatory disease) - Discharge Information Instructions: Pelvic Inflammatory Disease Referrals: PCP,None [Primary Care Provider] - Forms: ED Department Discharge Additional Instructions: The following information is given to patients seen in the emergency department who are being discharged to home. This information is to outline your options for follow-up care. We provide all patients seen in our emergency department with a follow-up referral. The need for follow-up, as well as the timing and circumstances, are variable depending upon the specifics of your emergency department visit. If you don't have a primary care physician on staff, we will provide you with a referral. We always advise you to contact your personal physician following an emergency department visit to inform them of the circumstance of the visit and for follow-up with them and/or the need for any referrals to a consulting specialist. The emergency department will also refer you to a specialist when appropriate. This referral assures that you have the opportunity for follow-up care with a specialist. All of these measure are taken in an effort to provide you with optimal care, which includes your follow-up. Under all circumstances we always encourage you to contact your private physician who remains a resource for coordinating your care. When calling for follow-up care, please make the office aware that this follow-up is from your recent emergency room visit. If for any reason you are refused follow-up, please contact the [facility] Emergency Department at and asked to speak to the emergency department charge nurse. Tyro, Motrin and heating pad to abdomen for pain. Follow-up with TRIM SETTER HELPER in 2-[address] [facility] Primary Care - Women's Health [facility] [address] [place] [id number] - My Orders Last 24 Hours: My Active Orders 12/14/16 12:57 EKG Documentation Completion [RC] STAT Saline Lock Insert [OM.PC] Stat 12/14/16 15:59 Abdomen Pelvis w Cont [CT] Stat - Assessment/Plan Last 24 Hours: My Active Orders 12/14/16 12:57 EKG Documentation Completion [RC] STAT Saline Lock Insert [OM.PC] Stat 12/14/16 15:59 Abdomen Pelvis w Cont [CT] Stat
[2016-12-14 20:20] VITALS: BP 146/76
--- NOTE | 2016-12-16 13:34 | CT ---
EXAM DATE: 12/14/16 PATIENT'S AGE: 31 Patient: ERIC BUSTAMANTE Facility: [place], [place] Site . Site : 1985 Study: CT Abdomen/Pelvis W CONT [id number] 5:27:30 PM Ordering Physician: Carlos Alberto Perez Final Report: INDICATION: Abdominal pain with nausea for 3 days. TECHNIQUE: CT abdomen and pelvis acquired with 100 mL Isovue 370 IV contrast. COMPARISON: None FINDINGS: Lower chest: Unremarkable. Liver: Uniform attenuation parenchyma. Craniocaudal greatest length of 24 cm. Spleen: Unremarkable. Pancreas: Unremarkable. Gallbladder and bile ducts: Unremarkable. Kidneys: Unremarkable. Adrenal glands: Unremarkable. GI tract: Unremarkable. Appendix is normal. Vascular structures: Negative. No sign of aneurysm. Lymph nodes: Unremarkable. Miscellaneous: Unremarkable. No free air or significant free fluid. Pelvic Organs: Unremarkable. Bones: Unremarkable for age. IMPRESSION: Hepatomegaly. No other significant finding. Please note that all CT scans at this facility use dose modulation, iterative reconstruction, and/or weight-based dosing when appropriate to reduce radiation dose to as low as reasonably achievable. Dictated by Derrek Quezada MD @ Dec 14 2016 5:40PM (Electronic Signature) Report Signed by Proxy. LUCIANO
== END 2016-12-14 18:10 | disposition home or self-care (01) ==
LOC: MW.ED 12:01
DX: N73.9 Female pelvic inflammatory disease, unspecified (principal); I10 Essential (primary) hypertension; F17.210 Nicotine dependence, cigarettes, uncomplicated; Z88.5 Allergy status to narcotic agent; Z79.899 Other long term (current) drug therapy
CPT/HCPCS: 36415; 74177; 80053; 81001; 81025; 83690; 85025; 93005; 96374; 99284; J2270; Q9967; J1885

== ENCOUNTER 2017-02-11 08:17 | Emergency (ER) | payer SELFPAY ==
[2017-02-11] MEDS ORDERED: Ketorolac 60 MG/2 ML SDV IM ONE (08:50)
--- NOTE | 2017-02-11 08:53 | EDM.PDOC ---
ED HPI GENERAL MEDICAL PROBLEM - General Chief Complaint: Back Pain or Injury Stated Complaint: BACK PAIN Time Seen by Provider: 02/11/17 08:51 Source of Information: Reports: Patient History Limitations: Reports: No Limitations - History of Present Illness INITIAL COMMENTS - FREE TEXT/NARRATIVE: History of present illness: []Patient was putting her dog leash and down with sudden sharp low back pain 3 days ago. Has been progressively worsening and radiating to her left buttock that feels like it's on "fire". She has no radiation of pain or numbness or tingling to her left leg or thigh. She denies any incontinence Review of systems: As per history of present illness and below otherwise all systems reviewed and negative. Past medical history: As per history of present illness and as reviewed below otherwise noncontributory. Surgical history: As per history of present illness and as reviewed below otherwise noncontributory. Social history: No reported history of drug or alcohol abuse. Family history: As per history of present illness and as reviewed below otherwise noncontributory. Physical exam: General: Well developed, well nourished in NAD HEENT: Atraumatic, normocephalic, pupils reactive, negative for conjunctival pallor or scleral icterus, mucous membranes moist, throat clear, neck supple, nontender, trachea midline. Lungs: Clear to auscultation, breath sounds equal bilaterally, chest nontender. Heart: S1S2, regular, negative for clicks, rubs, or JVD. Abdomen: Soft, nondistended, nontender. Negative for masses or hepatosplenomegaly. Negative for costovertebral tenderness. Pelvis: Stable nontender. Genitourinary: Deferred. Rectal: Deferred. Extremities: Atraumatic, negative for cords or calf pain. Neurovascular unremarkable. Neuro: Awake, alert, oriented. Cranial nerves II through XII unremarkable. Cerebellum unremarkable. Motor and sensory unremarkable throughout. Exam nonfocal. Diagnostics: [] Therapeutics: []Toradol IM given in the ED prescription for Flexeril and Toradol given Impression: []Acute left sciatica Plan: []Follow-up PMD, muscle relaxants continue anti-inflammatories ice pack as much as possible 20 minutes at a time Definitive disposition and diagnosis as appropriate pending reevaluation and review of above. Lower Back Pain Score (Numeric/FACES): 7 - Related Data Allergies Allergy/AdvReac Type Severity Reaction Status Date / Time celecoxib [From Celebrex] Allergy Hives Verified 02/11/17 08:40 tramadol HCl [From Ultram] Allergy Seizure Verified 12/14/16 12:43 Home Meds: Home Meds ALPRAZolam [Xanax] 1 mg PO BID PRN 12/12/16 [History] Acetaminophen 500 mg PRN 12/12/16 [History] Control Pill DAILY 12/12/16 [History] Metoprolol Tartrate [Lopressor] 50 mg PO BID 12/12/16 [History] buPROPion HCl [Wellbutrin SR] 150 mg PO DAILY 12/12/16 [History] Cyclobenzaprine [Flexeril] 10 mg PO TID PRN #16 tablet 02/11/17 [Rx] Ketorolac [Toradol] 10 mg PO Q6H PRN #16 tablet 02/11/17 [Rx] Past Medical History - Past Health History Medical/Surgical History: Denies Medical/Surgical History HEENT History: Reports: None Cardiovascular History: Reports: Hypertension Respiratory History: Reports: None Gastrointestinal History: Reports: None Genitourinary History: Reports: None 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 History: Reports: 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, Musculoskeletal History: Reports: None Neurological History: Reports: None Psychiatric History: Reports: Addiction, Anxiety, Depression Other Psychiatric History: 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 Endocrine/Metabolic History: Reports: None Hematologic History: Reports: None Immunologic History: Reports: None Oncologic (Cancer) History: Reports: None Dermatologic History: Reports: None - Infectious Disease History Infectious Disease History: Reports: MRSA Other Infectious Disease History: childhood - Past Surgical History Head Surgeries/Procedures: Reports: None HEENT Surgical History: Reports: None Cardiovascular Surgical History: Reports: None GI Surgical History: Reports: None Female Surgical History: Reports: D&C, Other (See Below) Other Female Surgeries/Procedures: laparoscopy for endometriosis, kidney infections Social & Family History - Family History Family Medical History: Noncontributory OBGYN: Reports: 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 Psychiatric: Reports: Anxiety, Depression - Tobacco Use Smoking Status *Q: Current Every Day Smoker Years of Tobacco use: 10 Packs/Tins Daily: 0.5 Second Hand Smoke Exposure: Yes - Caffeine Use Caffeine Use: Reports: Tea Caffeine Use Comment: 3drinks/day - Recreational Drug Use Recreational Drug Use: No Drug Use in Last 12 Months: No Recreational Drug Type: Reports: Other (see below) Recreational Drug Use Frequency: Not Used In Over 6 Months Recreational Drug Last Use: 2012 ED ROS GENERAL - Review of Systems Review Of Systems: See Below (See history of present illness) ED EXAM,LOWER BACK PAIN/INJURY - Physical Exam Exam: See Below (See history of present illness) Course - Vital Signs Last Recorded V/S: Last Vital Signs Temp 36.4 C 02/11/17 08:36 Pulse 97 02/11/17 08:36 Resp 20 02/11/17 08:36 BP 115/73 02/11/17 08:36 Pulse Ox 95 02/11/17 08:36 - Orders/Labs/Meds Meds: Medications Discontinued Medications Generic Name Dose Route Start Last Admin Trade Name Freq PRN Reason Stop Dose Admin Ketorolac Tromethamine 60 mg 02/11/17 08:50 02/11/17 09:01 Toradol IM 02/11/17 08:51 60 mg ONETIME ONE Administration Departure - Departure Time of Disposition: 09:00 Disposition: Home, Self-Care 01 Condition: Good Clinical Impression: Left sided sciatica - Discharge Information Prescriptions: Cyclobenzaprine [Flexeril] 10 mg PO TID PRN #16 tablet PRN Reason: Pain Ketorolac [Toradol] 10 mg PO Q6H PRN #16 tablet PRN Reason: Pain Referrals: Faye Mixon DO [Primary Care Provider] - Forms: ED Department Discharge Additional Instructions: The following information is given to patients seen in the emergency department who are being discharged to home. This information is to outline your options for follow-up care. We provide all patients seen in our emergency department with a follow-up referral. The need for follow-up, as well as the timing and circumstances, are variable depending upon the specifics of your emergency department visit. If you don't have a primary care physician on staff, we will provide you with a referral. We always advise you to contact your personal physician following an emergency department visit to inform them of the circumstance of the visit and for follow-up with them and/or the need for any referrals to a consulting specialist. The emergency department will also refer you to a specialist when appropriate. This referral assures that you have the opportunity for follow-up care with a specialist. All of these measure are taken in an effort to provide you with optimal care, which includes your follow-up. Under all circumstances we always encourage you to contact your private physician who remains a resource for coordinating your care. When calling for follow-up care, please make the office aware that this follow-up is from your recent emergency room visit. If for any reason you are refused follow-up, please contact the [facility] Emergency Department at and asked to speak to the emergency department charge nurse. Toradol, Flexeril for pain. Ice pack for 20 minutes at a time as frequently as possible Follow-up PMD [facility] [address] [place] [id number]
[2017-02-11 09:28] VITALS: BP 155/48
== END 2017-02-11 09:28 | disposition home or self-care (01) ==
LOC: MW.ED 08:17
DX: M54.42 Lumbago with sciatica, left side (principal); I10 Essential (primary) hypertension; F32.9 Major depressive disorder, single episode, unspecified; F17.210 Nicotine dependence, cigarettes, uncomplicated; Z98.890 Other specified postprocedural states; Z88.5 Allergy status to narcotic agent; Z88.8 Allergy status to other drugs, medicaments and biological substances; Z79.899 Other long term (current) drug therapy
CPT/HCPCS: 96372; 99282; J1885; 99283

== ENCOUNTER 2017-02-16 20:13 | Emergency (ER) | payer SELFPAY ==
[2017-02-16 20:27] VITALS: BP 127/74
--- NOTE | 2017-02-16 20:48 | EDM.PDOC ---
ED HPI GENERAL MEDICAL PROBLEM - General Chief Complaint: Back Pain or Injury Stated Complaint: LOWER BACK PAIN Time Seen by Provider: 02/16/17 20:44 Source of Information: Reports: Patient History Limitations: Reports: No Limitations - History of Present Illness INITIAL COMMENTS - FREE TEXT/NARRATIVE: HISTORY AND PHYSICAL: []31-year-old female presenting with continued back pain History of Present Illness: []Patient had been seen [address] Carcamo given Lortabs and prednisone. Concerned that she is still having muscle spasms Review of Systems: As per history of present illness and below otherwise all systems reviewed and negative. Past medical history: As per history of present illness and as reviewed below otherwise noncontributory. Surgical history: As per history of present illness and as reviewed below otherwise noncontributory. Social history: No reported history of drug or alcohol abuse. Family history: As per history of present illness and as reviewed below otherwise noncontributory. Physical exam: HEENT: Atraumatic, normocehpalic, pupils reactive, negative for conjunctival pallor or scleral icterus, Lungs: Clear to auscultation, breath sounds equal bilaterally, chest non tender. Heart: S1S2, regular, negative for clicks, rubs, or JVD. Abdomen: Soft, nondistended, nontender. Negative for masses or hepatossplenmegaly. Negative for costovertebral tenderness. Vertebrae are nontender upon palpation pain radiates to the left of L2-3 and radiates to the buttock. Pelvis: Stable nontender. Genitourinary: Deferred. Rectal: Deferred Extremities: Atraumatic, negative for cords or calf pain. Neurovascular unremarkable. Neuro: Awake, alert, oriented. Cranial nerves II through XII unremarkable. Cerebellum unremarkable. Motor and sensory unremarkable throughout. Exam nonfocal. Diagnostics: [] Therapeutics: [] Impression: []Left sciatica Plan: []Discharged to home Continue with your medication program as previously prescribed Muscle relaxant of Flexeril will be added to regimen May try a chiropractor for some relief Definitive disposition and diagnosis as appropriate pending reevaluation and review of above. back Pain Score (Numeric/FACES): 6 - Related Data Allergies Allergy/AdvReac Type Severity Reaction Status Date / Time celecoxib [From Celebrex] Allergy Hives Verified 02/16/17 20:21 tramadol HCl [From Ultram] Allergy Seizure Verified 02/16/17 20:21 Home Meds: Home Meds ALPRAZolam [Xanax] 1 mg PO BID PRN 12/12/16 [History] Acetaminophen 500 mg PO ASDIRECTED PRN 12/12/16 [History] Control Pill DAILY 12/12/16 [History] Metoprolol Tartrate [Lopressor] 50 mg PO BID 12/12/16 [History] buPROPion HCl [Wellbutrin SR] 200 mg PO BID 12/12/16 [History] Past Medical History - Past Health History Medical/Surgical History: Denies Medical/Surgical History HEENT History: Reports: None Cardiovascular History: Reports: Hypertension Respiratory History: Reports: None Gastrointestinal History: Reports: None Genitourinary History: Reports: None 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: 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, Musculoskeletal History: Reports: None Neurological History: Reports: None Psychiatric History: Reports: Addiction, Anxiety, Depression Other Psychiatric History: 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 Endocrine/Metabolic History: Reports: None Hematologic History: Reports: None Immunologic History: Reports: None Oncologic (Cancer) History: Reports: None Dermatologic History: Reports: None - Infectious Disease History Infectious Disease History: Reports: Chicken Pox Other Infectious Disease History: childhood - Past Surgical History Head Surgeries/Procedures: Reports: None HEENT Surgical History: Reports: None Cardiovascular Surgical History: Reports: None GI Surgical History: Reports: None Female Surgical History: Reports: D&C, Other (See Below) Other Female Surgeries/Procedures: laparoscopy for endometriosis, kidney infections Social & Family History - Family History Family Medical History: Noncontributory OBGYN: Reports: 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 Psychiatric: Reports: Anxiety, Depression - Tobacco Use Smoking Status *Q: Current Every Day Smoker Years of Tobacco use: 10 Packs/Tins Daily: 0.2 Second Hand Smoke Exposure: Yes - Caffeine Use Caffeine Use: Reports: Tea Caffeine Use Comment: 3drinks/day - Recreational Drug Use Recreational Drug Use: No Drug Use in Last 12 Months: No Recreational Drug Type: Reports: Other (see below) Recreational Drug Use Frequency: Not Used In Over 6 Months Recreational Drug Last Use: 2013 ED ROS GENERAL - Review of Systems Review Of Systems: ROS reveals no pertinent complaints other than HPI. ED EXAM,LOWER BACK PAIN/INJURY - Physical Exam Exam: See Below (See dictation) Course - Vital Signs Last Recorded V/S: Last Vital Signs Temp 36.6 C 02/16/17 20:24 Pulse 86 02/16/17 20:24 Resp 20 02/16/17 20:24 BP 127/74 02/16/17 20:24 Pulse Ox 100 02/16/17 20:24 Departure - Departure Time of Disposition: 20:47 Disposition: Home, Self-Care 01 Condition: Good Clinical Impression: Sciatica Qualifiers: Laterality: left Qualified Code(s): M54.32 - Sciatica, left side - Discharge Information Instructions: Muscle Strain, [id number], Back Pain, Adult, [id number] Referrals: PCP,None [Primary Care Provider] - Additional Instructions: The following information is given to patients seen in the emergency department who are being discharged to home. This information is to outline your options for follow-up care. We provide all patients seen in our emergency department with a follow-up referral. The need for follow-up, as well as the timing and circumstances, are variable depending upon the specifics of your emergency department visit. If you don't have a primary care physician on staff, we will provide you with a referral. We always advise you to contact your personal physician following an emergency department visit to inform them of the circumstance of the visit and for follow-up with them and/or the need for any referrals to a consulting specialist. The emergency department will also refer you to a specialist when appropriate. This referral assures that you have the opportunity for followup care with a specialist. All of these measure are taken in an effort to provide you with optimal care, which includes your followup. Under all circumstances we always encourage you to contact your private physician who remains a resource for coordinating your care. When calling for followup care, please make the office aware that this follow-up is from your recent emergency room visit. If for any reason you are refused follow-up, please contact the [facility] emergency department at and asked to speak to the emergency department charge nurse. Flexeril 10 mg 3 times a day when necessary pain 15 to refill May try chiropractic of choice May try physical therapy Follow up with your primary care provider
== END 2017-02-16 20:56 | disposition home or self-care (01) ==
LOC: MW.ED 20:13
DX: M54.32 Sciatica, left side (principal); I10 Essential (primary) hypertension; F17.210 Nicotine dependence, cigarettes, uncomplicated; Z88.5 Allergy status to narcotic agent; Z88.8 Allergy status to other drugs, medicaments and biological substances
CPT/HCPCS: 99282; 99283

== ENCOUNTER 2017-02-17 16:30 | Emergency (ER) | payer SELFPAY ==
[2017-02-17] MEDS ORDERED: Ketorolac 60 MG/2 ML SDV IM ONE (17:11)
--- NOTE | 2017-02-17 17:13 | EDM.PDOC ---
ED HPI GENERAL MEDICAL PROBLEM - General Chief Complaint: Back Pain or Injury Stated Complaint: BACK PAIN/SHOULDER Time Seen by Provider: 02/17/17 17:00 Source of Information: Reports: Patient History Limitations: Reports: No Limitations - History of Present Illness INITIAL COMMENTS - FREE TEXT/NARRATIVE: HISTORY AND PHYSICAL: History of present illness: [31-year-old female with a history of recent left low back pain which was felt to be sciatica seen 1 week ago and treated. Patient states that she also has had some recent right upper back pain and she points to her trapezius distribution. Patient did not have a fall or injury. She was not in motor vehicle accident of any kind. Her low back pain is improved and is not bothering her but she says her right upper back is sore. She has normal use of both arms no weakness. She denies neck pain. Pain is worse with movement and palpation of the area. She has no skin changes or rash. No recent fall she does not have a history of cervical disc problems or radiculopathy of the neck. Normal bowel and bladder habits with normal gait and normal use of bilateral lower extremities Review of systems: As per history of present illness and below otherwise all systems reviewed and negative. Past medical history: As per history of present illness and as reviewed below otherwise noncontributory. Surgical history: As per history of present illness and as reviewed below otherwise noncontributory. Social history: No reported history of drug or alcohol abuse. Family history: As per history of present illness and as reviewed below otherwise noncontributory. Physical exam: HEENT: Normocephalic, atraumatic, pupils normal and symmetrical, supple neck, no meningismus, normal color Lungs: Normal and symmetrical chest wall excursion bilateral with no tachypnea or increased work of breathing, grossly normal chest exam Heart: No tachycardia in triage Abdomen: Normal-appearing, nondistended, no visible mass or asymmetry Pelvis: Normal-appearing Genitourinary: Deferred Rectal exam: Deferred Extremities: Atraumatic, normal use and range of motion, no visible evidence of gross neurovascular compromise Neuro: Awake, alert, oriented. Normal and appropriate mental status. Cranial nerves grossly unremarkable. Motor function normal. Nonfocal neurologic exam. Right upper back with soft tissue tenderness in the distribution of patient's trapezius muscle. This is easily reproducible without bony tenderness. No midline or cervical tenderness. Patient's shoulder is normal and nontender and her use neurovascular status of bilateral upper extremities is normal Diagnostics: [] Therapeutics: [Toradol IM] Impression: [] Plan: [Signs and symptoms consistent with dorsal strain without muscle spasm. Soft tissue tenderness is easily reproducible in the right trapezius distribution as stated. Neurovascularly intact bilateral upper extremities. Will treat with NSAIDs patient aware to take NSAIDs as an outpatient follow-up with PCP for reevaluation. Further workup and treatment as needed. Patient is aware of less likely possibility of the origin of pain being radiculopathy from the C-spine. No further workup or treatment indicated. Patient agrees with outpatient follow- up and strict return precautions given] Definitive disposition and diagnosis as appropriate pending reevaluation and review of above. R shoulder, mid back Pain Score (Numeric/FACES): 7 - Related Data Allergies Allergy/AdvReac Type Severity Reaction Status Date / Time celecoxib [From Celebrex] Allergy Hives Verified 02/17/17 16:48 tramadol HCl [From Ultram] Allergy Seizure Verified 02/17/17 16:48 Home Meds: Home Meds ALPRAZolam [Xanax] 1 mg PO BID PRN 12/12/16 [History] Acetaminophen 500 mg PO ASDIRECTED PRN 12/12/16 [History] Control Pill DAILY 12/12/16 [History] Metoprolol Tartrate [Lopressor] 50 mg PO BID 12/12/16 [History] buPROPion HCl [Wellbutrin SR] 200 mg PO BID 12/12/16 [History] Acetaminophen/HYDROcodone [Lortab 500-5 MG] 1 tab PO Q6H PRN 02/17/17 [History] Cyclobenzaprine [Flexeril] 1 tab PO TID PRN 02/17/17 [History] Past Medical History - Past Health History Medical/Surgical History: Denies Medical/Surgical History HEENT History: Reports: None Cardiovascular History: Reports: Hypertension Respiratory History: Reports: None Gastrointestinal History: Reports: None Genitourinary History: Reports: None 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, Musculoskeletal History: Reports: None Neurological History: Reports: None Psychiatric History: Reports: Addiction, Anxiety, Depression Other Psychiatric History: 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 Endocrine/Metabolic History: Reports: None Hematologic History: Reports: None Immunologic History: Reports: None Oncologic (Cancer) History: Reports: None Dermatologic History: Reports: None - Infectious Disease History Infectious Disease History: Reports: Chicken Pox, MRSA Other Infectious Disease History: childhood - Past Surgical History Head Surgeries/Procedures: Reports: None HEENT Surgical History: Reports: None Cardiovascular Surgical History: Reports: None GI Surgical History: Reports: None Female Surgical History: Reports: D&C, Other (See Below) Other Female Surgeries/Procedures: laparoscopy for endometriosis, kidney infections Social & Family History - Family History Family Medical History: Noncontributory Cardiac: Reports: CAD, Hypertension OBGYN: Reports: 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 Psychiatric: Reports: Anxiety, Depression Endocrine/Metabolic: Reports: Diabetes, Type I - Tobacco Use Smoking Status *Q: Current Every Day Smoker Years of Tobacco use: 10 Packs/Tins Daily: 0.1 Second Hand Smoke Exposure: Yes - Caffeine Use Caffeine Use: Reports: Tea Caffeine Use Comment: 3drinks/day - Recreational Drug Use Recreational Drug Use: No Drug Use in Last 12 Months: No Recreational Drug Type: Reports: Other (see below) Recreational Drug Use Frequency: Not Used In Over 6 Months Recreational Drug Last Use: 2012 ED ROS GENERAL - Review of Systems Review Of Systems: See Below (History of present illness) ED EXAM, UPPER BACK/NECK PAIN - Physical Exam Exam: See Below (History of present illness) Course - Vital Signs Last Recorded V/S: Last Vital Signs Temp 36.3 C 02/17/17 16:44 Pulse 91 02/17/17 16:44 Resp 16 02/17/17 16:44 BP 147/94 H 02/17/17 16:44 Pulse Ox 98 02/17/17 16:44 - Orders/Labs/Meds Meds: Medications Discontinued Medications Generic Name Dose Route Start Last Admin Trade Name Freq PRN Reason Stop Dose Admin Ketorolac Tromethamine 60 mg 02/17/17 17:11 02/17/17 17:17 Toradol IM 02/17/17 17:12 60 mg ONETIME ONE Administration Departure - Departure Time of Disposition: 17:14 Disposition: Home, Self-Care 01 Condition: Good Clinical Impression: Back pain, Strain, dorsal - Discharge Information Instructions: Muscle Strain, [id number], Back Pain, Adult, [id number] Referrals: PCP,None [Primary Care Provider] - Forms: ED Department Discharge Additional Instructions: It appears that your right upper back pain as a result of strain of your back muscles. Minor soft tissue injury or strain of your muscles can cause soreness that can sometimes last for days or weeks. Take ibuprofen 800 mg every 6 hours and if you feel you may have some component of muscle spasm use Flexeril as previously prescribed as needed. Apply warm compresses, warm soaks and gentle stretches as needed. Follow-up with your doctor in 2-3 days for reevaluation. The aware that there is some possibility that the source of your discomfort could be pressure on or inflammation of a nerve root in your neck. Your symptoms persist in your Dr. feels this may be the case she could refer you for an outpatient MRI however, given that your muscles of your right trapezius area are sore and tender this diagnosis is less likely. You can also take Tylenol if necessary for any continued pain for follow-up with your doctor. Return immediately for new severe or worsening symptoms.
[2017-02-17 17:57] VITALS: BP 128/76
== END 2017-02-17 17:43 | disposition home or self-care (01) ==
LOC: MW.ED 16:30
DX: S39.012A Strain of muscle, fascia and tendon of lower back, initial encounter (principal); I10 Essential (primary) hypertension; F17.210 Nicotine dependence, cigarettes, uncomplicated; Z88.8 Allergy status to other drugs, medicaments and biological substances; X58.XXXA Exposure to other specified factors, initial encounter
CPT/HCPCS: 96372; 99283; J1885; 99282

== ENCOUNTER 2017-10-06 13:04 | Emergency (ER) | payer SELFPAY ==
[2017-10-06] MEDS ORDERED: Lidocaine 2% Viscous Solution 100 ML Bottle PO ONE ×2 (13:28→14:02)
[2017-10-06] MEDS ORDERED: Benzocaine 20% Topical Spray UD MUCMEM ONE (13:28)
--- NOTE | 2017-10-06 13:36 | EDM.PDOC ---
ED HPI GENERAL MEDICAL PROBLEM - General Chief Complaint: ENT Problem Stated Complaint: ABSCESS TOOTH Time Seen by Provider: 10/06/17 13:23 Source of Information: Reports: Patient History Limitations: Reports: No Limitations - History of Present Illness INITIAL COMMENTS - FREE TEXT/NARRATIVE: HISTORY AND PHYSICAL: History of present illness: Patient is a 32-year-old female who presents to the emergency room with complaints of left upper dental pain 1 month. She states she has been using Tylenol and ibuprofen without any relief. Denies any fever, chills, chest pain or shortness of breath. Denies any abdominal pain, nausea, vomiting, diarrhea or constipation. Currently had no plan to follow-up with the dentist. Review of systems: As per history of present illness and below otherwise all systems reviewed and negative. Past medical history: As per history of present illness and as reviewed below otherwise noncontributory. Surgical history: As per history of present illness and as reviewed below otherwise noncontributory. Social history: No reported history of drug or alcohol abuse. Family history: As per history of present illness and as reviewed below otherwise noncontributory. Physical exam: General: Developed and well-nourished 32-year-old female. Alert and oriented. Nontoxic appearing and in no acute distress. HEENT: Atraumatic, normocephalic, pupils equal and reactive bilaterally, negative for conjunctival pallor or scleral icterus, mucous membranes moist, throat clear, neck supple, nontender, trachea midline. Mild erythema noted to the #14- #15 midline. Tenderness with palpation. Does appear to have a cavity along this area as well. No drooling or trismus noted. No meningeal signs Lungs: Clear to auscultation, breath sounds equal bilaterally, chest nontender. Heart: S1S2, regular rate and rhythm without overt murmur Abdomen: Soft, nondistended, nontender. Negative for masses or hepatosplenomegaly. Negative for costovertebral tenderness. Pelvis: Stable nontender. Genitourinary: Deferred. Rectal: Deferred. Skin: Intact, warm, dry. No lesions or rashes noted. Extremities: Atraumatic, negative for cords or calf pain. Neurovascular unremarkable. Neuro: Awake, alert, oriented. Cranial nerves II through XII unremarkable. Cerebellum unremarkable. Motor and sensory unremarkable throughout. Exam nonfocal. Notes: Clindamycin one tab 3 times daily 10. Tylenol 3, dispense 20, no refill. Encouraged her strongly to follow-up with the dentist. She voices understanding and is agreeable to plan of care Diagnostics: [] Therapeutics: Dental balls Impression: Dental abscess Plan: 1. Please take the antibiotic as prescribed. 2. Tylenol with codeine has been prescribed, you may take 1 every 4-6 hours as needed. This medication will cause drowsiness so do not take it while driving or needing to be functioning outside of the house. Use the topical dental balls we have given you here. Ibuprofen may be used as well. 3. Follow-up with your dentist as we discussed. Return to the ED as needed and as discussed. Definitive disposition and diagnosis as appropriate pending reevaluation and review of above. Onset: Gradual Duration: Week(s): Location: Reports: Face Left Upper Oral/Mouth Pain Score (Numeric/FACES): 4 - Related Data Allergies Allergy/AdvReac Type Severity Reaction Status Date / Time celecoxib [From Celebrex] Allergy Hives Verified 02/17/17 16:48 tramadol HCl [From Ultram] Allergy Seizure Verified 02/17/17 16:48 Home Meds: Home Meds ALPRAZolam [Xanax] 1 mg PO BID PRN 12/12/16 [History] Control Pill 1 tab PO DAILY 12/12/16 [History] Metoprolol Tartrate [Lopressor] 50 mg PO BID 12/12/16 [History] buPROPion HCl [Wellbutrin SR] 200 mg PO BID 12/12/16 [History] Past Medical History - Past Health History Medical/Surgical History: Denies Medical/Surgical History HEENT History: Reports: None Cardiovascular History: Reports: Hypertension Respiratory History: Reports: None Gastrointestinal History: Reports: None Genitourinary History: Reports: None SHIPPING SUPPORT History: Reports: 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, Musculoskeletal History: Reports: None Neurological History: Reports: None Psychiatric History: Reports: Addiction, Anxiety, Depression Other Psychiatric History: 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 Endocrine/Metabolic History: Reports: None Hematologic History: Reports: None Immunologic History: Reports: None Oncologic (Cancer) History: Reports: None Dermatologic History: Reports: None - Infectious Disease History Infectious Disease History: Reports: Chicken Pox, MRSA Other Infectious Disease History: childhood - Past Surgical History Head Surgeries/Procedures: Reports: None HEENT Surgical History: Reports: None Cardiovascular Surgical History: Reports: None GI Surgical History: Reports: None Female Surgical History: Reports: D&C, Other (See Below) Other Female Surgeries/Procedures: laparoscopy for endometriosis, kidney infections Social & Family History - Family History Family Medical History: Noncontributory Cardiac: Reports: CAD, Hypertension OBGYN: Reports: 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 Psychiatric: Reports: Anxiety, Depression Endocrine/Metabolic: Reports: Diabetes, Type I - Caffeine Use Caffeine Use: Reports: Tea Caffeine Use Comment: 3drinks/day ED ROS GENERAL - Review of Systems Review Of Systems: ROS reveals no pertinent complaints other than HPI. ED EXAM, GENERAL - Physical Exam Exam: See Below (See dictation) Course - Vital Signs Last Recorded V/S: Last Vital Signs Temp 99.4 F 10/06/17 13:36 Pulse 97 10/06/17 13:36 Resp 16 10/06/17 13:36 BP 137/82 10/06/17 13:36 Pulse Ox 95 10/06/17 13:36 - Orders/Labs/Meds Meds: Medications Discontinued Medications Generic Name Dose Route Start Last Admin Trade Name Freq PRN Reason Stop Dose Admin Benzocaine 2 each 10/06/17 13:28 Hurricaine One 20% MUCMEM 10/06/17 13:29 ONETIME ONE Lidocaine HCl 20 ml 10/06/17 13:28 Xylocaine 2% Viscous PO 10/06/17 13:29 ONETIME ONE Departure - Departure Time of Disposition: 13:42 Disposition: Home, Self-Care 01 Clinical Impression: Dental abscess - Discharge Information Instructions: Dental Abscess, [id number] Referrals: PCP,None [Primary Care Provider] - Forms: ED Department Discharge Additional Instructions: The following information is given to patients seen in the emergency department who are being discharged to home. This information is to outline your options for follow-up care. We provide all patients seen in our emergency department with a follow-up referral. The need for follow-up, as well as the timing and circumstances, are variable depending upon the specifics of your emergency department visit. If you don't have a primary care physician on staff, we will provide you with a referral. We always advise you to contact your personal physician following an emergency department visit to inform them of the circumstance of the visit and for follow-up with them and/or the need for any referrals to a consulting specialist. The emergency department will also refer you to a specialist when appropriate. This referral assures that you have the opportunity for follow-up care with a specialist. All of these measure are taken in an effort to provide you with optimal care, which includes your follow-up. Under all circumstances we always encourage you to contact your private physician who remains a resource for coordinating your care. When calling for follow-up care, please make the office aware that this follow-up is from your recent emergency room visit. If for any reason you are refused follow-up, please contact the [facility] Emergency Department at and asked to speak to the emergency department charge nurse. [facility] [address] [place] [id number] 1. Please take the antibiotic as prescribed. 2. Tylenol with codeine has been prescribed, you may take 1 every 4-6 hours as needed. This medication will cause drowsiness so do not take it while driving or needing to be functioning outside of the house. Use the topical dental balls we have given you here. Ibuprofen may be used as well. 3. Follow-up with your dentist as we discussed. Return to the ED as needed and as discussed.
[2017-10-06] MEDS: Lidocaine 2% Viscous Solution 15 ML Cup ONE ×2 (14:00→14:04)
[2017-10-06 15:01] VITALS: BP 136/76
== END 2017-10-06 14:05 | disposition home or self-care (01) ==
LOC: MW.ED 13:04
DX: K04.7 Periapical abscess without sinus (principal); I10 Essential (primary) hypertension; Z88.5 Allergy status to narcotic agent; Z88.8 Allergy status to other drugs, medicaments and biological substances; Z79.899 Other long term (current) drug therapy
CPT/HCPCS: 99282; A9270

== ENCOUNTER 2018-01-02 15:19 | Emergency (ER) | payer SELFPAY ==
[2018-01-02] MEDS ORDERED: Ketorolac 60 MG/2 ML SDV IM ONE (15:50)
[2018-01-02] MEDS ORDERED: Ondansetron 4 MG Tab.DIS PO ONE (15:50)
[2018-01-02 16:26] LABS: CHLORIDE,CL 107 mmol/L (98-107); SODIUM,NA 140 mmol/L (136-145)
--- NOTE | 2018-01-02 16:30 | EDM.PDOC ---
ED HPI GENERAL MEDICAL PROBLEM - General Chief Complaint: Abdominal Pain Stated Complaint: ABD PAIN Time Seen by Provider: 01/02/18 15:36 Source of Information: Reports: Patient History Limitations: Reports: No Limitations - History of Present Illness INITIAL COMMENTS - FREE TEXT/NARRATIVE: History of present illness: []Patient started having diarrhea this morning. She states it's green, has mucus and has had more than 15 episodes today. Fevers or chills, recent antibiotic use any abnormal food consumption or exposure o to anyone with similar symptoms. Review of systems: As per history of present illness and below otherwise all systems reviewed and negative. Past medical history: As per history of present illness and as reviewed below otherwise noncontributory. Surgical history: As per history of present illness and as reviewed below otherwise noncontributory. Social history: No reported history of drug or alcohol abuse. Family history: As per history of present illness and as reviewed below otherwise noncontributory. Physical exam: General: Well developed, well nourished in NAD HEENT: Atraumatic, normocephalic, pupils reactive, negative for conjunctival pallor or scleral icterus, mucous membranes moist, throat clear, neck supple, nontender, trachea midline. Lungs: Clear to auscultation, breath sounds equal bilaterally, chest nontender. Heart: S1S2, regular, negative for clicks, rubs, or JVD. Abdomen: No active bowel sounds Soft, nondistended, mild diffuse tenderness rebound or guarding. Negative for masses or hepatosplenomegaly. Negative for costovertebral tenderness. Pelvis: Stable nontender. Genitourinary: Deferred. Rectal: External hemorrhoid noted nonthrombosed, no active bleeding, guaiac negative Extremities: Atraumatic, negative for cords or calf pain. Neurovascular unremarkable. Neuro: Awake, alert, oriented. Cranial nerves II through XII unremarkable. Cerebellum unremarkable. Motor and sensory unremarkable throughout. Exam nonfocal. Skin:warm and dry Diagnostics: CBC shows WBC of 11.8, no bands, chemistry normal, LFTs normal, lipase negative Therapeutics: Toradol, Levsin, Zofran ED Course: The patient was unable to give a stool sample Impression: Diarrhea Prescriptions: Levsin for cramping, Plan: Tylenol or Motrin for pain use Imodium as directed for diarrhea follow-up with her primary care Definitive disposition and diagnosis as appropriate pending reevaluation and review of above. Abdominal Pain Score (Numeric/FACES): 5 - Related Data Allergies Allergy/AdvReac Type Severity Reaction Status Date / Time celecoxib [From Celebrex] Allergy Hives Verified 01/02/18 15:29 clindamycin Allergy Hives Verified 01/02/18 15:29 tramadol HCl [From Ultram] Allergy Seizure Verified 01/02/18 15:29 Home Meds: Home Meds ALPRAZolam [Xanax] 1 mg PO BID PRN 12/12/16 [History] Control Pill 1 tab PO DAILY 12/12/16 [History] Metoprolol Tartrate [Lopressor] 50 mg PO BID 12/12/16 [History] buPROPion HCl [Wellbutrin SR] 200 mg PO BID 12/12/16 [History] Hyoscyamine Sulfate [Levsin] 0.125 mg PO TID PRN #20 tablet 01/02/18 [Rx] Ondansetron HCl [Zofran] 4 mg PO Q4HR #12 tablet 01/02/18 [Rx] Past Medical History - Past Health History Medical/Surgical History: Denies Medical/Surgical History HEENT History: Reports: None Cardiovascular History: Reports: Hypertension Respiratory History: Reports: None Gastrointestinal History: Reports: None Genitourinary History: Reports: None 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, Musculoskeletal History: Reports: None Neurological History: Reports: None Psychiatric History: Reports: Addiction, Anxiety, Depression Other Psychiatric History: 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 Endocrine/Metabolic History: Reports: None Hematologic History: Reports: None Immunologic History: Reports: None Oncologic (Cancer) History: Reports: None Dermatologic History: Reports: None - Infectious Disease History Infectious Disease History: Reports: Chicken Pox Other Infectious Disease History: childhood - Past Surgical History Head Surgeries/Procedures: Reports: None HEENT Surgical History: Reports: None Cardiovascular Surgical History: Reports: None GI Surgical History: Reports: None, Colonoscopy Female Surgical History: Reports: D&C, Other (See Below) Other Female Surgeries/Procedures: laparoscopy for endometriosis, kidney infections Musculoskeletal Surgical History: Reports: Other (See Below) Other Musculoskeletal Surgeries/Procedures:: bone marrow biopsy Social & Family History - Family History Family Medical History: Noncontributory Cardiac: Reports: CAD, Hypertension OBGYN: Reports: 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 Psychiatric: Reports: Anxiety, Depression Endocrine/Metabolic: Reports: Diabetes, Type I - Tobacco Use Smoking Status *Q: Former Smoker Used Tobacco, but Quit: Yes Month/Year Tobacco Last Used: 2017 - Caffeine Use Caffeine Use: Reports: None Caffeine Use Comment: 3drinks/day - Recreational Drug Use Recreational Drug Use: No ED ROS GENERAL - Review of Systems Review Of Systems: ROS reveals no pertinent complaints other than HPI. ED EXAM, GI/ABD - Physical Exam Exam: See Below (See history of present illness) Course - Vital Signs Last Recorded V/S: Last Vital Signs Temp 97.4 F 01/02/18 15:26 Pulse 97 01/02/18 15:26 Resp 18 01/02/18 15:26 BP 128/87 01/02/18 15:26 Pulse Ox 96 01/02/18 15:26 - Orders/Labs/Meds Orders: Active Orders 24 hr Category Date Time Status Clostridium Difficile [CDIFF TOX A+B] [OP] Stat Lab 01/02/18 15:48 Ordered Labs: Laboratory Tests 01/02/18 01/02/18 01/02/18 Range/Units 16:00 16:00 16:00 WBC 11.86 H (4.0-11.0) K/uL RBC 4.22 L (4.30-5.90) M/uL Hgb 13.7 (12.0-16.0) g/dL Hct 40.1 (36.0-46.0) % MCV 95.0 (80.0-98.0) fL MCH 32.5 H (27.0-32.0) pg MCHC 34.2 (31.0-37.0) g/dL RDW Std Deviation 44.8 (28.0-62.0) fl RDW Coeff of Yanelis 13 (11.0-15.0) % Plt Count 278 (150-400) K/uL MPV 9.80 (7.40-12.00) fL Neut % (Auto) 69.0 (48.0-80.0) % Lymph % (Auto) 22.8 (16.0-40.0) % Isabela % (Auto) 6.2 (0.0-15.0) % Eos % (Auto) 1.9 (0.0-7.0) % Baso % (Auto) 0.1 (0.0-1.5) % Neut # (Auto) 8.2 H (1.4-5.7) K/uL Lymph # (Auto) 2.7 H (0.6-2.4) K/uL Isabela # (Auto) 0.7 (0.0-0.8) K/uL Eos # (Auto) 0.2 (0.0-0.7) K/uL Baso # (Auto) 0.0 (0.0-0.1) K/uL Nucleated RBC % 0.0 /100WBC Nucleated RBCs # 0 K/uL Sodium 140 (136-145) mmol/L Potassium 4.1 (3.5-5.1) mmol/L Chloride 107 (98-107) mmol/L Carbon Dioxide 24.9 (21.0-32.0) mmol/L BUN 7 (7.0-18.0) mg/dL Creatinine 0.8 (0.6-1.0) mg/dL Est Cr Clr Drug Dosing 104.53 mL/min Estimated GFR (MDRD) > 60.0 ml/min Glucose 89 (74-106) mg/dL Calcium 8.9 (8.5-10.1) mg/dL Total Bilirubin 0.2 (0.2-1.0) mg/dL AST 11 L (15-37) IU/L ALT 20 (14-63) IU/L Alkaline Phosphatase 78 (46-116) U/L Total Protein 7.4 (6.4-8.2) g/dL Albumin 3.3 L (3.4-5.0) g/dL Globulin 4.1 H (2.0-3.5) g/dL Albumin/Globulin Ratio 0.8 L (1.3-2.8) Lipase 180 (73-393) U/L Meds: Medications Discontinued Medications Generic Name Dose Route Start Last Admin Trade Name Freq PRN Reason Stop Dose Admin Hydromorphone HCl 1 mg 01/02/18 17:18 01/02/18 17:25 Dilaudid IM 01/02/18 17:19 1 mg ONETIME ONE Administration Hyoscyamine 0.125 mg 01/02/18 17:02 01/02/18 17:12 Hyomax-Sl SL 01/02/18 17:03 0.125 mg ONETIME ONE Administration Ketorolac Tromethamine 60 mg 01/02/18 15:50 01/02/18 16:02 Toradol IM 01/02/18 15:51 60 mg ONETIME ONE Administration Ondansetron HCl 4 mg 01/02/18 15:50 01/02/18 16:03 Zofran Odt PO 01/02/18 15:51 4 mg ONETIME ONE Administration Departure - Departure Time of Disposition: 17:36 Disposition: Home, Self-Care 01 Condition: Good Clinical Impression: Diarrhea Qualifiers: Diarrhea type: unspecified type Qualified Code(s): R19.7 - Diarrhea, unspecified - Discharge Information *PRESCRIPTION DRUG MONITORING PROGRAM REVIEWED*: No Prescriptions: Ondansetron HCl [Zofran] 4 mg PO Q4HR #12 tablet Hyoscyamine Sulfate [Levsin] 0.125 mg PO TID PRN #20 tablet PRN Reason: Pain Instructions: Food Choices to Help Relieve Diarrhea, Adult, Vomiting, Adult Referrals: PCP,None [Primary Care Provider] - Forms: ED Department Discharge Additional Instructions: The following information is given to patients seen in the emergency department who are being discharged to home. This information is to outline your options for follow-up care. We provide all patients seen in our emergency department with a follow-up referral. The need for follow-up, as well as the timing and circumstances, are variable depending upon the specifics of your emergency department visit. If you don't have a primary care physician on staff, we will provide you with a referral. We always advise you to contact your personal physician following an emergency department visit to inform them of the circumstance of the visit and for follow-up with them and/or the need for any referrals to a consulting specialist. The emergency department will also refer you to a specialist when appropriate. This referral assures that you have the opportunity for follow-up care with a specialist. All of these measure are taken in an effort to provide you with optimal care, which includes your follow-up. Under all circumstances we always encourage you to contact your private physician who remains a resource for coordinating your care. When calling for follow-up care, please make the office aware that this follow-up is from your recent emergency room visit. If for any reason you are refused follow-up, please contact the [facility] Emergency Department at and asked to speak to the emergency department charge nurse. Take Levsin for abdominal cramping, use Imodium as directed Tylenol Motrin for pain follow-up with primary care return if symptoms worsen or change. YUNIER [facility] [place] [id number] - My Orders Last 24 Hours: My Active Orders 01/02/18 15:48 Clostridium Difficile [CDIFF TOX A+B] [OP] Stat - Assessment/Plan Last 24 Hours: My Active Orders 01/02/18 15:48 Clostridium Difficile [CDIFF TOX A+B] [OP] Stat
[2018-01-02] MEDS ORDERED: Hyoscyamine 0.125 MG Tab.SL SL ONE (17:02)
[2018-01-02] MEDS ORDERED: HYDROmorphone 2 MG/ML SDV IM ONE (17:18)
[2018-01-02 18:49] VITALS: BP 136/89
== END 2018-01-02 18:29 | disposition home or self-care (01) ==
LOC: MW.ED 15:19
DX: R19.7 Diarrhea, unspecified (principal); I10 Essential (primary) hypertension; Z87.891 Personal history of nicotine dependence; Z88.1 Allergy status to other antibiotic agents; Z88.5 Allergy status to narcotic agent
CPT/HCPCS: 36415; 80053; 83690; 85025; 96372; 99284; A9270; J1170; J1885; 99283

== ENCOUNTER 2019-04-23 15:58 | Emergency (ER) | payer SELFPAY ==
--- NOTE | 2019-04-23 16:06 | EDM.PDOC ---
ED HPI GENERAL MEDICAL PROBLEM - General Chief Complaint: Lower Extremity Injury/Pain Stated Complaint: INJURED LT ANKLE Time Seen by Provider: 04/23/19 15:59 Source of Information: Reports: Patient History Limitations: Reports: No Limitations - History of Present Illness INITIAL COMMENTS - FREE TEXT/NARRATIVE: HISTORY AND PHYSICAL: History of present illness: Patient is a 33-year-old female who presents to the emergency room today with complaints of left lateral ankle pain. She states yesterday she had tripped and fallen resulting in her rolling her ankle. She has pain and soft tissue swelling to the left lateral ankle. She is ambulatory and able to bear weight although this is uncomfortable. She denies any other extremity involvement. Denies hitting her head or having any loss of consciousness. Offers no systemic complaints at this time. Review of systems: As per history of present illness and below otherwise all systems reviewed and negative. Past medical history: As per history of present illness and as reviewed below otherwise noncontributory. Surgical history: As per history of present illness and as reviewed below otherwise noncontributory. Social history: See social history for further information Family history: As per history of present illness and as reviewed below otherwise noncontributory. Physical exam: General: Well-developed and well-nourished 33-year-old female. Alert and oriented. Nontoxic appearing and in no acute distress. HEENT: Atraumatic, normocephalic, pupils equal and reactive bilaterally, negative for conjunctival pallor or scleral icterus, mucous membranes moist, TMs normal bilaterally, throat clear, neck supple, nontender, trachea midline. No drooling or trismus noted. No meningeal signs. No hot potato voice noted. Lungs: Clear to auscultation, breath sounds equal bilaterally, chest nontender. Heart: S1S2, regular rate and rhythm without overt murmur Abdomen: Soft, nondistended, nontender. Skin: Intact, warm, dry. No lesions or rashes noted. Extremities: Atraumatic, moves all extremities per self without difficulty or deficits, negative for cords or calf pain. Neurovascular unremarkable. Neuro: Awake, alert, oriented. Cranial nerves II through XII unremarkable. Cerebellum unremarkable. Motor and sensory unremarkable throughout. Exam nonfocal. Notes: X-ray shows no fractures; +lateral ankle edema. Cam Walker boot and crutches were provided. We discussed following up with orthopedic provider. Supportive care measures were reviewed and discussed. Voices understanding and is agreeable to plan of care. Denies any further questions or concerns at this time. Diagnostics: Ankle x-ray Therapeutics: CAM walker boot and crutches Prescription: None Impression: Left ankle injury Plan: 1. Rest, ice, elevate the affected extremity. Please wear the splint and use crutches as directed. 2. Tylenol and/or Ibuprofen as needed for pain management. 3. Follow up with the Orthopedic provider as we discussed. Return to the ED as needed and as discussed. Definitive disposition and diagnosis as appropriate pending reevaluation and review of above. left ankle Pain Score (Numeric/FACES): 8 - Related Data Allergies Allergy/AdvReac Type Severity Reaction Status Date / Time celecoxib [From Celebrex] Allergy Hives Verified 05/02/18 11:41 clindamycin Allergy Hives Verified 05/02/18 11:41 tramadol HCl [From Ultram] Allergy Seizure Verified 05/02/18 11:41 Home Meds: Home Meds ALPRAZolam [Xanax] 1 mg PO BID PRN 12/12/16 [History] Control Pill 1 tab PO DAILY 12/12/16 [History] Metoprolol Tartrate [Lopressor] 50 mg PO BID 12/12/16 [History] buPROPion HCl [Wellbutrin SR] 200 mg PO BID 12/12/16 [History] Past Medical History - Past Health History Medical/Surgical History: Denies Medical/Surgical History HEENT History: Reports: None Cardiovascular History: Reports: Hypertension Other Cardiovascular History: tachycardia Respiratory History: Reports: None Gastrointestinal History: Reports: None Genitourinary History: Reports: None 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, Musculoskeletal History: Reports: None Neurological History: Reports: None Psychiatric History: Reports: Addiction, Anxiety, Depression Other Psychiatric History: 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 Endocrine/Metabolic History: Reports: None Hematologic History: Reports: None Immunologic History: Reports: None Oncologic (Cancer) History: Reports: None Dermatologic History: Reports: None - Infectious Disease History Infectious Disease History: Reports: Chicken Pox Other Infectious Disease History: childhood - Past Surgical History Head Surgeries/Procedures: Reports: None HEENT Surgical History: Reports: None Cardiovascular Surgical History: Reports: None GI Surgical History: Reports: None, Colonoscopy Female Surgical History: Reports: D&C, Other (See Below) Other Female Surgeries/Procedures: laparoscopy for endometriosis, kidney infections Musculoskeletal Surgical History: Reports: Other (See Below) Other Musculoskeletal Surgeries/Procedures:: bone marrow biopsy Social & Family History - Family History Family Medical History: Noncontributory Cardiac: Reports: CAD, Hypertension OBGYN: Reports: 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 Psychiatric: Reports: Anxiety, Depression Endocrine/Metabolic: Reports: Diabetes, Type I - Caffeine Use Caffeine Use: Reports: Coffee, Soda Caffeine Use Comment: 3drinks/day Review of Systems - Review of Systems Review Of Systems: Comprehensive ROS is negative, except as noted in HPI. ED EXAM, GENERAL - Physical Exam Exam: See Below (See dictation) Course - Vital Signs Last Recorded V/S: Last Vital Signs Temp 98 F 04/23/19 16:12 Pulse 93 04/23/19 16:12 Resp 18 04/23/19 16:12 BP 145/88 H 04/23/19 16:12 Pulse Ox 99 04/23/19 16:12 - Orders/Labs/Meds Orders: Active Orders 24 hr Category Date Time Status DME for Discharge [COMM] Stat Oth 04/23/19 16:43 Ordered Meds: Medications Discontinued Medications Generic Name Dose Route Start Last Admin Trade Name Sevenq PRN Reason Stop Dose Admin Ketorolac Tromethamine 60 mg 04/23/19 16:43 04/23/19 16:51 Toradol IM 04/23/19 16:44 60 mg ONETIME ONE Administration Departure - Departure Time of Disposition: 16:58 Disposition: Home, Self-Care 01 Clinical Impression: Left ankle injury Qualifiers: Encounter type: initial encounter Qualified Code(s): S99.912A - Unspecified injury of left ankle, initial encounter - Discharge Information Instructions: Ankle Sprain, [id number] Referrals: Faye Mioxn DO [Primary Care Provider] - Forms: ED Department Discharge Additional Instructions: The following information is given to patients seen in the emergency department who are being discharged to home. This information is to outline your options for follow-up care. We provide all patients seen in our emergency department with a follow-up referral. The need for follow-up, as well as the timing and circumstances, are variable depending upon the specifics of your emergency department visit. If you don't have a primary care physician on staff, we will provide you with a referral. We always advise you to contact your personal physician following an emergency department visit to inform them of the circumstance of the visit and for follow-up with them and/or the need for any referrals to a consulting specialist. The emergency department will also refer you to a specialist when appropriate. This referral assures that you have the opportunity for follow-up care with a specialist. All of these measure are taken in an effort to provide you with optimal care, which includes your follow-up. Under all circumstances we always encourage you to contact your private physician who remains a resource for coordinating your care. When calling for follow-up care, please make the office aware that this follow-up is from your recent emergency room visit. If for any reason you are refused follow-up, please contact the [facility] Emergency Department at and asked to speak to the emergency department charge nurse. [facility] [address] [place] [id number] [facility] [address] [place] [id number] 1. Rest, ice, elevate the affected extremity. Please wear the splint and use crutches as directed. 2. Tylenol and/or Ibuprofen as needed for pain management. 3. Follow up with the Orthopedic provider as we discussed. Return to the ED as needed and as discussed. - My Orders Last 24 Hours: My Active Orders 04/23/19 16:43 DME for Discharge [COMM] Stat - Assessment/Plan Last 24 Hours: My Active Orders 04/23/19 16:43 DME for Discharge [COMM] Stat
[2019-04-23 16:14] VITALS: BP 145/88; PULSE 93
[2019-04-23] MEDS ORDERED: Ketorolac 60 MG/2 ML SDV IM ONE (16:43)
--- NOTE | 2019-04-23 16:55 | CR ---
INDICATION: Fall TECHNIQUE: Three views left ankle COMPARISON: None FINDINGS: Bones: Alignment is normal. No fractures or bone lesions. Joint spaces: Unremarkable. Soft tissues: Lateral ankle edema. IMPRESSION: Lateral ankle edema. Dictated by Jagdeep Lantigua MD @ 04/23/2019 4:54:26 PM Dictated by: Jagdeep Lantigua MD @ 04/23/2019 16:54:30 (Electronically Signed)
== END 2019-04-23 17:15 | disposition home or self-care (01) ==
LOC: MW.ED 15:58
DX: S99.912A Unspecified injury of left ankle, initial encounter (principal); I10 Essential (primary) hypertension; F41.9 Anxiety disorder, unspecified; F32.9 Major depressive disorder, single episode, unspecified; Z88.8 Allergy status to other drugs, medicaments and biological substances; Z88.5 Allergy status to narcotic agent; Z88.1 Allergy status to other antibiotic agents; Z79.899 Other long term (current) drug therapy; W01.0XXA Fall on same level from slipping, tripping and stumbling without subsequent striking against object, initial encounter
CPT/HCPCS: 73610; 96372; 99283; J1885

== ENCOUNTER 2019-04-24 10:22 | Emergency (ER) | payer SELFPAY ==
[2019-04-24 10:52] VITALS: BP 147/74; PULSE 84
--- NOTE | 2019-04-24 10:59 | EDM.PDOC ---
ED HPI GENERAL MEDICAL PROBLEM - General Chief Complaint: Lower Extremity Injury/Pain Stated Complaint: LT ANKLE INJURY Time Seen by Provider: 04/24/19 10:45 - History of Present Illness INITIAL COMMENTS - FREE TEXT/NARRATIVE: HISTORY AND PHYSICAL: History of present illness: The patient is a 33-year-old female who was seen here last evening after sustaining an ankle sprain/injury for which she had a negative x-ray except for lateral soft tissue swelling and who represented today with persistent pain. The patient received a dose of Toradol last evening and said that it did not help very much and she has been wearing her CAM boot and using her crutches. She says she has been icing and elevated and wants something stronger for pain management. She has not taken anything [id number] for pain management since she left here. She seems very disgruntled and upset and her significant other is also very verbally abrasive on my interview and in discussion with me. Please see below. Please note that the patient did come in without her crutches Review of systems: As per history of present illness and below otherwise all systems reviewed and negative. Past medical history: As per history of present illness and as reviewed below otherwise noncontributory. Surgical history: As per history of present illness and as reviewed below otherwise noncontributory. Social history: No reported history of drug or alcohol abuse. Family history: As per history of present illness and as reviewed below otherwise noncontributory. Physical exam: HEENT: Atraumatic, normocephalic, negative for conjunctival pallor or scleral icterus, mucous membranes moist, throat clear, neck supple, nontender, trachea midline. Lungs: Clear to auscultation, breath sounds equal bilaterally, chest nontender. Heart: S1S2, regular and rhythm no overt murmurs Abdomen: Deferred Pelvis: Stable nontender. Genitourinary: Deferred. Rectal: Deferred. Extremities: Atraumatic with full range of motion of all extremities with the exception of the left ankle where there is diffuse circumferential soft tissue swelling without ecchymosis or malalignment. Neurovascular is intact distally and there is no proximal tib-fib knee or thigh pain or soft tissue swelling,, negative for cords or calf pain. Neurovascular unremarkable. Neuro: Awake, alert, oriented. Cranial nerves II through XII unremarkable. Cerebellum unremarkable. Motor and sensory unremarkable throughout. Exam nonfocal. Diagnostics: Patient had an x-ray last evening which I reviewed Therapeutics: Patient was offered Toradol IM and declines. I did discuss with her that in light of her allergies and drug intolerances would be very limited in what we can manage this with and that I have advised [id number] pain medications which she is very disgruntled and upset about. Significant other became verbally confrontational with me as I discussed with him that I would not be giving stronger pain medications and a prescription form but I could offer one tablet here to hopefully de-escalate her pain so that [id number] meds might work better. Before I could finish making that offer and explaining the rationale behind it he jumped up and told his significant other to "get in the wheelchair"and that they were leaving. I did state to him that the choices that were given to this patient were to help reduce inflammation pain and the actual injury rather than masking the discomfort. He seemed again very upset with this whole conversation and would not listen to my conversation. They have absconded prior to getting any discharge paperwork Impression: Left ankle injury Definitive disposition and diagnosis as appropriate pending reevaluation and review of above. Left Ankle Pain Score (Numeric/FACES): 10 - Related Data Allergies Allergy/AdvReac Type Severity Reaction Status Date / Time celecoxib [From Celebrex] Allergy Hives Verified 04/24/19 10:48 clindamycin Allergy Hives Verified 04/24/19 10:48 tramadol HCl [From Ultram] Allergy Seizure Verified 04/24/19 10:48 Home Meds: Home Meds ALPRAZolam [Xanax] 1 mg PO BID PRN 12/12/16 [History] Control Pill 1 tab PO DAILY 12/12/16 [History] Metoprolol Tartrate [Lopressor] 50 mg PO BID 12/12/16 [History] buPROPion HCl [Wellbutrin SR] 200 mg PO BID 12/12/16 [History] Past Medical History - Past Health History Medical/Surgical History: Denies Medical/Surgical History HEENT History: Reports: None Cardiovascular History: Reports: Hypertension Other Cardiovascular History: tachycardia Respiratory History: Reports: None Gastrointestinal History: Reports: None Genitourinary History: Reports: None 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, Musculoskeletal History: Reports: None Neurological History: Reports: None Psychiatric History: Reports: Addiction, Anxiety, Depression Other Psychiatric History: 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 Endocrine/Metabolic History: Reports: None Hematologic History: Reports: None Immunologic History: Reports: None Oncologic (Cancer) History: Reports: None Dermatologic History: Reports: None - Infectious Disease History Infectious Disease History: Reports: Chicken Pox Other Infectious Disease History: childhood - Past Surgical History Head Surgeries/Procedures: Reports: None HEENT Surgical History: Reports: None Cardiovascular Surgical History: Reports: None GI Surgical History: Reports: None, Colonoscopy Female Surgical History: Reports: D&C, Other (See Below) Other Female Surgeries/Procedures: laparoscopy for endometriosis, kidney infections Musculoskeletal Surgical History: Reports: Other (See Below) Other Musculoskeletal Surgeries/Procedures:: bone marrow biopsy Social & Family History - Family History Family Medical History: Noncontributory Cardiac: Reports: CAD, Hypertension OBGYN: Reports: 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 Psychiatric: Reports: Anxiety, Depression Endocrine/Metabolic: Reports: Diabetes, Type I - Caffeine Use Caffeine Use: Reports: Coffee, Soda Caffeine Use Comment: 3drinks/day Review of Systems - Review of Systems Review Of Systems: Comprehensive ROS is negative, except as noted in HPI. ED EXAM, GENERAL - Physical Exam Exam: See Below (se e dictation) Course - Vital Signs Last Recorded V/S: Last Vital Signs Temp 36.8 C 04/24/19 10:49 Pulse 84 04/24/19 10:49 Resp 18 04/24/19 10:49 BP 147/74 H 04/24/19 10:49 Pulse Ox 96 04/24/19 10:49 Departure - Departure Time of Disposition: 10:59 Disposition: Eloped 07 Condition: Good Clinical Impression: Injury of left ankle Qualifiers: Encounter type: subsequent encounter Qualified Code(s): S99.912D - Unspecified injury of left ankle, subsequent encounter - Discharge Information Referrals: PCP,None [Primary Care Provider] - Additional Instructions: The following information is given to patients seen in the emergency department who are being discharged to home. This information is to outline your options for follow-up care. We provide all patients seen in our emergency department with a follow-up referral. The need for follow-up, as well as the timing and circumstances, are variable depending upon the specifics of your emergency department visit. If you don't have a primary care physician on staff, we will provide you with a referral. We always advise you to contact your personal physician following an emergency department visit to inform them of the circumstance of the visit and for follow-up with them and/or the need for any referrals to a consulting specialist. The emergency department will also refer you to a specialist when appropriate. This referral assures that you have the opportunity for followup care with a specialist. All of these measure are taken in an effort to provide you with optimal care, which includes your followup. Under all circumstances we always encourage you to contact your private physician who remains a resource for coordinating your care. When calling for followup care, please make the office aware that this follow-up is from your recent emergency room visit. If for any reason you are refused follow-up, please contact the [facility] emergency department at and ask to speak to the emergency department charge nurse. [facility] Specialty Care - Orthopedic Clinic Professional Building [address] [place] [address], [address] [place] [address] Ice and elevate follow-up using resources given to above
== END 2019-04-24 11:00 | disposition left against medical advice (07) ==
LOC: MW.ED 10:22
DX: S99.912A Unspecified injury of left ankle, initial encounter (principal); I10 Essential (primary) hypertension; F32.9 Major depressive disorder, single episode, unspecified; F41.9 Anxiety disorder, unspecified; Z88.1 Allergy status to other antibiotic agents; X58.XXXA Exposure to other specified factors, initial encounter
CPT/HCPCS: 99283

== ENCOUNTER 2020-03-16 08:21 | Inpatient (IN) | payer OTHER ==
--- NOTE | 2020-03-16 08:33 | PCM.LDHP ---
L&D History of Present Illness - General Date of Service: 03/16/20 Admit Problem/Dx: Admission Diagnosis/Problem Admission Diagnosis/Problem 03/16/20 08:28 presenting to L&D at 38 4/7 weeks (AMADEO: 03/26/20) reporting regular uterine contractions since 0400. complicated by GDMA2. Most recent growth ultrasound on 03/01/20 showed EFW of 3200 grams (7 lb 0 oz); 81st percentile. A+, Rubella immune, GBS positive (GBS carrier). Originally scheduled for induction this evening at 1700 for GDMA2. SVE: 3cm/50%/-2, soft, midposition. Vertex presentation confirmed by bedside ultrasound. 03/16/20 08:39 Source of Information: Patient History Limitations: Reports: No Limitations - Related Data Allergies/Adverse Reactions: Allergies Allergy/AdvReac Type Severity Reaction Status Date / Time celecoxib [From Celebrex] Allergy Hives Verified 03/07/20 12:26 tramadol [From Ultram] Allergy Seizure Verified 03/07/20 12:26 Home Medications: Home Meds Metoprolol Tartrate [Lopressor] 100 mg PO DAILY 12/12/16 [History] Pnv No.95/Ferrous Fum/Folic AC [ Vitamin Tablet] 1 tab PO DAILY 02/28/20 [History] metFORMIN [Glucophage] 500 mg PO BID 02/28/20 [History] ondansetron HCL [Zofran] 1 tab PO Q6H PRN 02/28/20 [History] Past Medical History - Past Health History Medical/Surgical History: Denies Medical/Surgical History HEENT History: Reports: None Cardiovascular History: Reports: Hypertension Other Cardiovascular History: tachycardia Respiratory History: Reports: None Gastrointestinal History: Reports: None Genitourinary History: Reports: None 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, Musculoskeletal History: Reports: None Neurological History: Reports: None Psychiatric History: Reports: Addiction, Anxiety, Depression Other Psychiatric History: 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 Endocrine/Metabolic History: Reports: None Hematologic History: Reports: None Immunologic History: Reports: None Oncologic (Cancer) History: Reports: None Dermatologic History: Reports: None - Infectious Disease History Infectious Disease History: Reports: Chicken Pox Other Infectious Disease History: childhood - Past Surgical History Head Surgeries/Procedures: Reports: None HEENT Surgical History: Reports: None Cardiovascular Surgical History: Reports: None GI Surgical History: Reports: None, Colonoscopy Female Surgical History: Reports: D&C, Other (See Below) Other Female Surgeries/Procedures: laparoscopy for endometriosis, kidney infections Musculoskeletal Surgical History: Reports: Other (See Below) Other Musculoskeletal Surgeries/Procedures:: bone marrow biopsy Social & Family History - Family History Family Medical History: Noncontributory Cardiac: Reports: CAD, Hypertension OBGYN: Reports: 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 Psychiatric: Reports: Anxiety, Depression Endocrine/Metabolic: Reports: Diabetes, Type I - Caffeine Use Caffeine Use: Reports: Coffee, Soda Caffeine Use Comment: 3drinks/day H&P Review of Systems - Review of Systems: Review Of Systems: See Below General: Reports: No Symptoms HEENT: Reports: No Symptoms Pulmonary: Reports: No Symptoms Cardiovascular: Reports: No Symptoms Gastrointestinal: Reports: No Symptoms Genitourinary: Reports: No Symptoms Musculoskeletal: Reports: No Symptoms Skin: Reports: No Symptoms Psychiatric: Reports: No Symptoms Neurological: Reports: No Symptoms Hematologic/Lymphatic: Reports: No Symptoms Immunologic: Reports: No Symptoms L&D Exam - Exam Exam: See Below - OB Specific Contraction Intensity: Moderate Movement: Active Heart Tones: Present Heart Rate (FHR) Variability: Moderate (6-25 bmp) Presentation: Vertex (confirmed by bedside ultrasound) - Burns Score Burns Score Cervix Position: Midposition Burns Score Consistency: Soft Burns Score Effacement: 51-70% Burns Score Dilation: 3-4 cm Burns Score 's Station: -2 Burns Score Total: 8 - Exam General: Alert, Oriented, Cooperative Lungs: Normal Respiratory Effort Cardiovascular: Regular Rate, Regular Rhythm GI/Abdominal Exam: Soft, Non-Tender Rectal Exam: Deferred Genitourinary: Deferred Back Exam: Normal Inspection, Full Range of Motion Extremities: Normal Inspection, Normal Range of Motion, Non-Tender, Normal Capillary Refill Skin: Warm, Dry, Intact Neurological: Strength Equal Bilateral, Normal Gait, Normal Speech, Normal Tone, Sensation Intact Psychiatric: Alert, Normal Affect, Normal Mood - Problem List (1) Gestational diabetes mellitus (GDM) controlled on oral hypoglycemic drug SNOMED Code(s): 89006500 ICD Code: O24.415 - GESTATNL DIABETES IN PREG, CTRL BY ORAL HYPOGLYCEMIC DRUGS Status: Acute Priority: High Current Visit: Yes Qualifiers: Trimester: third trimester Qualified Code(s): O24.415 - Gestational diabetes mellitus in , controlled by oral hypoglycemic drugs Problem List Initiated/Reviewed/Updated: Yes Assessment/Plan Comment:: Admit A: presenting to L&D at 38 4/7 weeks (AMADEO: 03/26/20) reporting regular uterine contractions since 0400. complicated by GDMA2. Most recent growth ultrasound on 03/01/20 showed EFW of 3200 grams (7 lb 0 oz); 81st percentile. A+, Rubella immune, GBS positive (GBS carrier). Originally scheduled for induction this evening at 1700 for GDMA2. SVE: 3cm/50%/-2, soft, midposition. Vertex presentation confirmed by bedside ultrasound. P: Anticipate ; epidural PRN; Dr. Dobbins updated.
[2020-03-16] MEDS ORDERED: Methylergonovine 0.2 MG/1 ML Amp IM PRN (08:43)
[2020-03-16] MEDS ORDERED: Water For Irrigation,Sterile 1,000 ML Container IRR PRN (08:43)
[2020-03-16] MEDS ORDERED: Butorphanol 1 MG/ML SDV IVPUSH PRN (08:43)
[2020-03-16] MEDS ORDERED: Misoprostol 200 MCG Tab PO PRN (08:43)
[2020-03-16] MEDS ORDERED: Tranexamic Acid 1,000 MG in Sodium Chloride 0.9% 100 ML IV PRN (08:43)
[2020-03-16] MEDS ORDERED: Nalbuphine 10 MG/1 ML Vial IVPUSH PRN (08:43)
[2020-03-16] MEDS ORDERED: Ondansetron 4 MG/2 ML SDV IVPUSH PRN (08:43)
[2020-03-16] MEDS ORDERED: Carboprost Tromethamine 250 MCG/1 ML Amp IM PRN (08:43)
[2020-03-16] MEDS ORDERED: Sodium Chloride 0.9% 2.5 ML Syringe FLUSH PRN (08:43)
[2020-03-16] MEDS ORDERED: Lidocaine 1% 50 ML MDV INJECT PRN (08:43)
[2020-03-16] MEDS ORDERED: Sodium Chloride 0.9% 10 ML SDV IV PRN (08:43)
[2020-03-16] MEDS ORDERED: Sodium Chloride 0.9% 10 ML Syringe FLUSH PRN (08:43)
[2020-03-16] MEDS ORDERED: Lactated Ringers 1,000 ML IV SCH (08:45)
[2020-03-16] MEDS ORDERED: Oxytocin/0.9 % Sodium Chloride 30 UNIT/500 ML BAG IV SCH (08:45)
[2020-03-16] MEDS ORDERED: Ampicillin 2 GM in Sodium Chloride 0.9% 100 ML IV ONE (09:00)
--- NOTE | 2020-03-16 10:56 | PCM.SN.2 ---
- Free Text/Narrative Note: Anesthesia time [id number] Bedside in LDR 4 as requested for difficult IV start. US used. Chlorhexidine prep.. Attempt #1 with 18g in R forearm unsuccessful. Attempt #2 with 20g in RFA successful. Secured with occlusive tegaderm and plastic tape. Labs drawn. tourniquet removed. LR started at TKO rate. RN informed.
--- NOTE | 2020-03-16 11:04 | PCM.PREANE ---
Preanesthetic Assessment - Procedure Proposed Procedure: Pt plans to have epidural. Risks, benefits, alternatives, procedure, maintenance, and anesthesia coverage discussed. Educated on QUALITY PROCESS LEAD use. All questions answered and concerns addressed. - Anesthesia/Transfusion/Family Hx Anesthesia History: Prior Anesthesia Without Reaction ([place] teeth under GA with no anesthesia complications, previous successful epidurals without complications.) Family History of Anesthesia Reaction: No Transfusion History: No Prior Transfusion(s) Additional History: Gestational diabetes. Metoprolol for tachycardia, which is now well-controlled. - Review of Systems General: No Symptoms Pulmonary: No Symptoms Cardiovascular: No Symptoms Gastrointestinal: No Symptoms Neurological: No Symptoms Other: Reports: None - Physical Assessment ASA Class: 2 Mental Status: Alert & Oriented x3 Airway Class: Mallampati = 2 Dentition: Reports: Normal Dentition Thyro-Mental Finger Breadths: 3 Mouth Opening Finger Breadths: 3 ROM/Head Extension: Full Lungs: Normal Respiratory Effort Cardiovascular: Regular Rate, Regular Rhythm - Lab Values: Laboratory Last Values SARS-CoV-2 RNA ([facility]) NEGATIVE (NEGATIVE) 03/16/20 09:50 - Allergies Allergies/Adverse Reactions: Allergies Allergy/AdvReac Type Severity Reaction Status Date / Time celecoxib [From Celebrex] Allergy Hives Verified 03/07/20 12:26 tramadol [From Ultram] Allergy Seizure Verified 03/07/20 12:26 - Acknowledgements Anesthesia Type Planned: Epidural Pt an Appropriate Candidate for the Planned Anesthesia: Yes Alternatives and Risks of Anesthesia Discussed w Pt/Guardian: Yes Pt/Guardian Understands and Agrees with Anesthesia Plan: Yes PreAnesthesia Questionnaire - Past Health History Medical/Surgical History: Denies Medical/Surgical History HEENT History: Reports: None Cardiovascular History: Reports: Hypertension Other Cardiovascular History: tachycardia Respiratory History: Reports: None Gastrointestinal History: Reports: None Genitourinary History: Reports: None F[employer]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, Musculoskeletal History: Reports: None Neurological History: Reports: None Psychiatric History: Reports: Addiction, Anxiety, Depression Other Psychiatric History: 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 Endocrine/Metabolic History: Reports: None Hematologic History: Reports: None Immunologic History: Reports: None Oncologic (Cancer) History: Reports: None Dermatologic History: Reports: None - Infectious Disease History Infectious Disease History: Reports: Chicken Pox Other Infectious Disease History: childhood - Past Surgical History Head Surgeries/Procedures: Reports: None HEENT Surgical History: Reports: None Cardiovascular Surgical History: Reports: None GI Surgical History: Reports: None, Colonoscopy Female Surgical History: Reports: D&C, Other (See Below) Other Female Surgeries/Procedures: laparoscopy for endometriosis, kidney infections Musculoskeletal Surgical History: Reports: Other (See Below) Other Musculoskeletal Surgeries/Procedures:: bone marrow biopsy - HOME MEDS Home Medications: Home Meds Metoprolol Tartrate [Lopressor] 100 mg PO DAILY 12/12/16 [History] Pnv No.95/Ferrous Fum/Folic AC [ Vitamin Tablet] 1 tab PO DAILY 02/28/20 [History] metFORMIN [Glucophage] 500 mg PO BID 02/28/20 [History] ondansetron HCL [Zofran] 1 tab PO Q6H PRN 02/28/20 [History] - CURRENT (IN HOUSE) MEDS Current Meds: Current Medications Butorphanol Tartrate (Stadol) 1 mg IVPUSH Q1H PRN PRN Reason: Pain Carboprost Tromethamine (Hemabate Ds) 250 mcg IM ASDIRECTED PRN PRN Reason: Post Hemorrhage Lactated Ringer's (Ringers, Lactated) 1,000 mls @ 150 mls/hr IV ASDIRECTED [facility] Oxytocin/Sodium Chloride (Oxytocin 30 Unit/500 Ml-Ns) 30 unit in 500 mls @ 999 mls/hr IV TITRATE [facility] Tranexamic Acid 1,000 mg/ (Sodium Chloride) 110 mls @ 660 mls/hr IV ONETIME PRN PRN Reason: Bleeding Ampicillin Sodium 1 gm/ Sodium (Chloride) 50 mls @ 100 mls/hr IV Q4H [facility] Lidocaine HCl (Xylocaine 1%) 50 ml INJECT ONETIME PRN PRN Reason: Laceration repair Methylergonovine Maleate (Methergine) 0.2 mg IM ASDIRECTED PRN PRN Reason: Post Hemorrhage Misoprostol (Cytotec) 200 mcg PO ONETIME PRN PRN Reason: Post Hemorrhage Nalbuphine HCl (Nubain) 10 mg IVPUSH Q1H PRN PRN Reason: Pain (severe 7-10) Ondansetron HCl (Zofran) 4 mg IVPUSH Q6H PRN PRN Reason: Nausea/Vomiting Sodium Chloride (Saline Flush) 10 ml FLUSH ASDIRECTED PRN PRN Reason: Keep Vein Open Sodium Chloride (Saline Flush) 2.5 ml FLUSH ASDIRECTED PRN PRN Reason: Keep Vein Open Sodium Chloride (Normal Saline) 10 ml IV ASDIRECTED PRN PRN Reason: IV Use Sterile Water (Sterile Water For Irrigation) 1,000 ml IRR ASDIRECTED PRN PRN Reason: delivery Discontinued Medications Ampicillin Sodium 2 gm/ Sodium (Chloride) 100 mls @ 200 mls/hr IV ONETIME ONE Stop: 03/16/20 09:29
[2020-03-16] MEDS ORDERED: Omeprazole 20 MG Cap.CR PO PRN (11:12)
[2020-03-16] MEDS ORDERED: Calcium Carbonate 500 MG Tab.Chew PO PRN (11:13)
[2020-03-16] MEDS ORDERED: Ropivacaine HCl/PF 100 ML ONE (12:32)
[2020-03-16] MEDS ORDERED: fentaNYL 100 MCG/2 ML SDV ONE (12:32)
[2020-03-16] MEDS ORDERED: Ampicillin 1 GM in Sodium Chloride 0.9% 50 ML IV SCH (13:00)
--- NOTE | 2020-03-16 13:17 | PCM.SN.2 ---
- Free Text/Narrative Note: Anesthesia time 2562-8170 1237- Bedside LDR [address] STEVE for labor analgesia. Consented earlier in the day with RN witness. Patient confirms that all questions have been answered, concerns addressed. 1240- Sitting position, monitors on, VSS. Sterile technique. "Time-out" completed. Chlorhexidine prep. Lido. 1% for localization. Attempt #1 at L3-4 successful. ANKITA with saline at 7.5cm. Transient right-sided paresthesia once, retracted and redirected, and did not recur with advancement or catheter threading. 1247-Catheter threaded to 14cm without resistance. 1249-Negative to aspiration for both heme and CSF, test dose negative. Sterile tegaderm dressing, cloth tape to secure. 1256-Drip started (0.2% ropivicaine with 2mcg/ml fentanyl at 8ml/hr with 4ml TECH INTERN option Q10 min, hourly lockout of 34ml). 6ml clinician loading dose administered. 1315- T9 level achieved, pt reports satisfactory pain control, VSS.
[2020-03-16] MEDS ORDERED: FLU VACC QS2020-21(6MOS UP)/PF 60 MCG/0.5 ML SYRINGE IM ONE (15:00)
[2020-03-16] MEDS ORDERED: Bisacodyl 10 MG Supp RECTAL PRN (15:11)
[2020-03-16] MEDS ORDERED: Ibuprofen 400 MG Tab PO PRN (15:11)
[2020-03-16] MEDS ORDERED: Acetaminophen 500 MG Tab PO PRN (15:11)
[2020-03-16] MEDS ORDERED: Lanolin 100% Cream 7 GM Tube TOP PRN (15:11)
[2020-03-16] MEDS ORDERED: Witch Hazel Medicated Pads 40/Jar TOP PRN (15:11)
[2020-03-16] MEDS ORDERED: Benzocaine/Menthol 20%-0.5% Spray 78 GM Cannister TOP PRN (15:11)
[2020-03-16] MEDS ORDERED: Docusate Sodium 100 MG Cap PO PRN (15:11)
--- NOTE | 2020-03-16 15:27 | PCM.DEL ---
L & D Note - General Info Date of Service: 03/16/20 Mother's Due Date: 03/26/20 - Delivery Note Labor: Spontaneous Delivery Outcome: Livebirth Infant Delivery Method: Spontaneous Vaginal Delivery-Single Presentation: Left Occiput Anterior (YAKOV) (confirmed by bedside ultrasound) Nuchal Cord: Present Prep: Povidone-Iodine (Betadine Anesthesia Type: Epidural Amniotic Fluid Description: Clear Episiotomy Type: None Laceration: None Placenta: Intact, Spontaneous Cord: 3 Vessels Resuscitation Needed: No : Bulb Syringe Score 1 min: 7 Score 5 min: 8 Delivery Comments (Free Text/Narrative):: 34 yo G6 now P4024 care complicated by GBS+ S/P ampicillin intrapartum, delivered 3:40mns after the 1st dose of ampicillin. Normal spontaneous vaginal delivery of live male , position YAKOV, over intact perineum with epidural anesthesia. Nuchal cordx1, easily reducible. Spontaneous delivery of placenta with 3-vessel cord. No laceration. No Complications. EBL 100cc Delivery details: Male - Parents desire circumcision. Weight: 8lbs : 7/8 EBL 100cc Sponge and instrument counts were correct at the end of the procedure. - General Info Date of Service: 03/16/20 Functional Status: Reports: Pain Controlled - Patient Data Weight - Most Recent: 136.078 kg Lab Results Last 24 Hours: Laboratory Results - last 24 hr 03/16/20 03/16/20 03/16/20 Range/Units 09:50 10:40 10:40 WBC 14.32 H (4.0-11.0) K/uL RBC 4.03 L (4.30-5.90) M/uL Hgb 13.0 (12.0-16.0) g/dL Hct 38.9 (36.0-46.0) % MCV 96.5 (80.0-98.0) fL MCH 32.3 H (27.0-32.0) pg MCHC 33.4 (31.0-37.0) g/dL RDW Std Deviation 46.7 (28.0-62.0) fl RDW Coeff of Yanelis 13 (11.0-15.0) % Plt Count 321 (150-400) K/uL MPV 10.00 (7.40-12.00) fL Nucleated RBC % 0.0 /100WBC Nucleated RBCs # 0 K/uL POC Glucose (60-110) mg/dL SARS-CoV-2 RNA ([facility]) NEGATIVE (NEGATIVE) Blood Type A POSITIVE Antibody Screen NEGATIVE Crossmatch 03/16/20 03/16/20 Range/Units 10:40 11:06 WBC (4.0-11.0) K/uL RBC (4.30-5.90) M/uL Hgb (12.0-16.0) g/dL Hct (36.0-46.0) % MCV (80.0-98.0) fL MCH (27.0-32.0) pg MCHC (31.0-37.0) g/dL RDW Std Deviation (28.0-62.0) fl RDW Coeff of Yanelis (11.0-15.0) % Plt Count (150-400) K/uL MPV (7.40-12.00) fL Nucleated RBC % /100WBC Nucleated RBCs # K/uL POC Glucose 117 H (60-110) mg/dL SARS-CoV-2 RNA ([facility]) (NEGATIVE) Blood Type Antibody Screen Crossmatch See Detail Med Orders - Current: Current Medications Acetaminophen (Tylenol Extra Strength) 500 mg PO Q4H PRN PRN Reason: Pain Acetaminophen (Tylenol Extra Strength) 1,000 mg PO Q4H PRN PRN Reason: Pain Benzocaine/Menthol (Dermoplast Pain Relief 20%-0.5% Rover) 78 gm TOP ASDIRECTED PRN PRN Reason: Perineal Comfort Measure Bisacodyl (Dulcolax) 10 mg RECTAL ONETIME PRN PRN Reason: Constipation Butorphanol Tartrate (Stadol) 1 mg IVPUSH Q1H PRN PRN Reason: Pain Calcium Carbonate/Glycine (Tums) 1,000 mg PO Q2HR PRN PRN Reason: Indigestion Last Admin: 03/16/20 11:45 Dose: 1,000 mg Documented by: Carboprost Tromethamine (Hemabate Ds) 250 mcg IM ASDIRECTED PRN PRN Reason: Post Hemorrhage Docusate Sodium (Colace) 100 mg PO BID PRN PRN Reason: Constipation Emollient Ointment (Lansinoh Hpa) 0 gm TOP ASDIRECTED PRN PRN Reason: Sore Nipples Lactated Ringer's (Ringers, Lactated) 1,000 mls @ 150 mls/hr IV ASDIRECTED [facility] Last Admin: 03/16/20 10:40 Dose: 150 mls/hr Documented by: Oxytocin/Sodium Chloride (Oxytocin 30 Unit/500 Ml-Ns) 30 unit in 500 mls @ 999 mls/hr IV TITRATE [facility] Last Admin: 03/16/20 14:49 Dose: 500 mls/hr Documented by: Tranexamic Acid 1,000 mg/ (Sodium Chloride) 110 mls @ 660 mls/hr IV ONETIME PRN PRN Reason: Bleeding Ampicillin Sodium 1 gm/ Sodium (Chloride) 50 mls @ 100 mls/hr IV Q4H [facility] Ibuprofen (Motrin) 400 mg PO Q4H PRN PRN Reason: Pain Ibuprofen (Motrin) 800 mg PO Q6H PRN PRN Reason: Pain Lidocaine HCl (Xylocaine 1%) 50 ml INJECT ONETIME PRN PRN Reason: Laceration repair Methylergonovine Maleate (Methergine) 0.2 mg IM ASDIRECTED PRN PRN Reason: Post Hemorrhage Misoprostol (Cytotec) 200 mcg PO ONETIME PRN PRN Reason: Post Hemorrhage Nalbuphine HCl (Nubain) 10 mg IVPUSH Q1H PRN PRN Reason: Pain (severe 7-10) Omeprazole (Omeprazole) 20 mg PO DAILY PRN PRN Reason: Indigestion Last Admin: 03/16/20 11:44 Dose: 20 mg Documented by: Ondansetron HCl (Zofran) 4 mg IVPUSH Q6H PRN PRN Reason: Nausea/Vomiting Sodium Chloride (Saline Flush) 10 ml FLUSH ASDIRECTED PRN PRN Reason: Keep Vein Open Sodium Chloride (Saline Flush) 2.5 ml FLUSH ASDIRECTED PRN PRN Reason: Keep Vein Open Sodium Chloride (Normal Saline) 10 ml IV ASDIRECTED PRN PRN Reason: IV Use Sterile Water (Sterile Water For Irrigation) 1,000 ml IRR ASDIRECTED PRN PRN Reason: delivery Witch Chelsie (Tucks) 1 pad TOP ASDIRECTED PRN PRN Reason: comfort care Discontinued Medications Fentanyl (Sublimaze) Confirm Administered Dose 200 mcg .ROUTE .STK-MED ONE Stop: 03/16/20 12:33 Ampicillin Sodium 2 gm/ Sodium (Chloride) 100 mls @ 200 mls/hr IV ONETIME ONE Stop: 03/16/20 09:29 Last Admin: 03/16/20 11:04 Dose: 200 mls/hr Documented by: Ropivacaine (Naropin 0.2%) Confirm Administered Dose 100 mls @ as directed .ROUTE .STK-MED ONE Stop: 03/16/20 12:33 Influenza Virus Vaccine (Pharmacy To Dose - Influenza Vaccine) 1 each IM ONETIME ONE Stop: 03/16/20 14:33 Influenza Virus Vaccine (Fluzone Quad [id number] Syringe) 60 mcg IM .ONCE ONE Stop: 03/16/20 15:01 - Problem List & Annotations (1) Term delivered SNOMED Code(s): 68898563, 413280861 Code(s): O80 - ENCOUNTER FOR FULL-TERM UNCOMPLICATED DELIVERY Status: Acute Current Visit: Yes (2) Normal spontaneous vaginal delivery SNOMED Code(s): 65448236, 106314650 Code(s): O80 - ENCOUNTER FOR FULL-TERM UNCOMPLICATED DELIVERY Status: Acute Current Visit: Yes - Problem List Review Problem List Initiated/Reviewed/Updated: Yes - My Orders Last 24 Hours: My Active Orders 03/16/20 11:12 Omeprazole 20 mg PO DAILY PRN 03/16/20 11:13 Calcium Carbonate [Tums] 1,000 mg PO Q2HR PRN 03/16/20 15:11 Patient Status [ADT] Routine May Shower [RC] ASDIRECTED Up ad Joanna [RC] ASDIRECTED Vital Signs [RC] PER UNIT ROUTINE Acetaminophen [Tylenol Extra Strength] 1,000 mg PO Q4H PRN Acetaminophen [Tylenol Extra Strength] 500 mg PO Q4H PRN Benzocaine/Menthol [Dermoplast Pain Relief 20%-0.5% Rover] 78 gm TOP ASDIRECTED PRN Docusate Sodium [Colace] 100 mg PO BID PRN Ibuprofen [Motrin] 400 mg PO Q4H PRN Ibuprofen [Motrin] 800 mg PO Q6H PRN Lanolin [Lansinoh HPA] See Dose Instructions TOP ASDIRECTED PRN bisacodyL [Dulcolax] 10 mg RECTAL ONETIME PRN witch Chelsie [Tucks] 1 pad TOP ASDIRECTED PRN Assess Lochia [WOMSER] Per Unit Routine Assess Uterine Involution [WOMSER] Per Unit Routine Peripheral IV Discontinue [OM.PC] Routine 03/17/20 05:11 HEMOGLOBIN/HEMATOCRIT,HH [HEME] Timed - Plan Plan:: Admit A: presenting to L&D at 38 4/7 weeks (AMADEO: 03/26/20) reporting regular uterine contractions since 0400. complicated by GDMA2. Most recent growth ultrasound on 03/01/20 showed EFW of 3200 grams (7 lb 0 oz); 81st percentile. A+, Rubella immune, GBS positive (GBS carrier). Originally scheduled for induction this evening at 1700 for GDMA2. SVE: 3cm/50%/-2, soft, midposition. Vertex presentation confirmed by bedside ultrasound. P: Anticipate ; epidural PRN; Dr. Dobbins updated. 03/16/20 3:41: Normal spontaneous vaginal delivery of live male , position YAKOV, over intact perineum with epidural anesthesia. Nuchal cordx1, easily reducible. Spontaneous delivery of placenta with 3-vessel cord. No laceration. No Complications. EBL 100cc Delivery details: Male infant - Parents desire circumcision. Weight: 8lbs : 7/8 EBL 100cc Sponge and instrument counts were correct at the end of the procedure.
[2020-03-16] MEDS: Ibuprofen 800 MG Tab PO PRN (17:16)
[2020-03-16] MEDS: Acetaminophen 500 MG Tab PO PRN (22:34)
[2020-03-17] MEDS: Ibuprofen 800 MG Tab PO PRN ×2 (04:57→16:24)
--- NOTE | 2020-03-17 07:52 | PCM48HPAN ---
Post Anesthesia Note - EVALUATION WITHIN 48HRS OF ANESTHETIC Vital Signs in Normal Range: Yes Patient Participated in Evaluation: Yes Respiratory Function Stable: Yes Airway Patent: Yes Cardiovascular Function Stable: Yes Hydration Status Stable: Yes Pain Control Satisfactory: Yes (5/10 pain before motrin, 2/10 after.) Nausea and Vomiting Control Satisfactory: Yes Mental Status Recovered: Yes Vital Signs: Last Vital Signs Temp 36.1 C 03/17/20 05:10 Pulse 87 03/17/20 05:10 Resp 18 03/17/20 05:10 BP 138/71 03/17/20 05:10 Pulse Ox 96 03/17/20 05:10 - COMMENTS/OBSERVATIONS Free Text/Narrative:: Patient has been ambulating well with full return of strength and sensation to BLE. Reports satisfactory pain control, and is taking PO well without N/V.
[2020-03-17] MEDS: Acetaminophen 500 MG Tab PO PRN (08:44)
[2020-03-17 10:47] VITALS: BP 138/68; PULSE 84
--- NOTE | 2020-03-17 11:52 | PCM.PNPP ---
- General Info Date of Service: 03/17/20 Admission Dx/Problem (Free Text): Admission Diagnosis/Problem Admission Diagnosis/Problem Chelsey is a 34 yo PPD1 S/P uncomplicated to term NBF. A pos, RI, GBS pos with inadequate prophylaxis prior to . A2GDM controlled with metformin. Continue to monitor glucose. Hemodynamically stable, afebrile. Patient is bottle-feeding well and fairly well, resting comfortably in bed with in arms. Patient reports she is eating, voiding, ambulating independently and without difficulty. Patient denies any problems or concerns at this time except moderate intermittent uterine cramping relieved with Tylenol and Ibuprofen. Patient reports moderate rubra lochia with no clots. Functional Status: Reports: Pain Controlled - Review of Systems General: Reports: No Symptoms HEENT: Reports: No Symptoms Pulmonary: Reports: No Symptoms Cardiovascular: Reports: No Symptoms Gastrointestinal: Reports: No Symptoms Genitourinary: Reports: No Symptoms Musculoskeletal: Reports: No Symptoms Skin: Reports: No Symptoms Neurological: Reports: No Symptoms Psychiatric: Reports: No Symptoms - General Info Date of Service: 03/17/20 - Patient Data Vital Signs - Most Recent: Last Vital Signs Temp 97.0 F 03/17/20 08:00 Pulse 84 03/17/20 08:00 Resp 16 03/17/20 08:00 BP 138/68 03/17/20 08:00 Pulse Ox 97 03/17/20 08:00 Weight - Most Recent: 300 lb I&O - Last 24 Hours: Intake & Output 03/16/20 03/17/20 03/17/20 22:59 06:59 14:59 Output Total 100 Balance -100 Lab Results - Last 24 Hours: Laboratory Results - last 24 hr 03/16/20 03/16/20 03/17/20 Range/Units 10:40 10:40 05:23 Hgb 11.2 L (12.0-16.0) g/dL Hct 34.2 L (36.0-46.0) % POC Glucose (60-110) mg/dL Blood Type A POSITIVE Antibody Screen NEGATIVE Crossmatch See Detail 03/17/20 Range/Units 10:25 Hgb (12.0-16.0) g/dL Hct (36.0-46.0) % POC Glucose 93 (60-110) mg/dL Blood Type Antibody Screen Crossmatch Med Orders - Current: Current Medications Acetaminophen (Tylenol Extra Strength) 500 mg PO Q4H PRN PRN Reason: Pain Acetaminophen (Tylenol Extra Strength) 1,000 mg PO Q4H PRN PRN Reason: Pain Last Admin: 03/17/20 08:44 Dose: 1,000 mg Documented by: Benzocaine/Menthol (Dermoplast Pain Relief 20%-0.5% Mineral) 78 gm TOP ASDIRECTED PRN PRN Reason: Perineal Comfort Measure Last Admin: 03/16/20 17:16 Dose: 1 canister Documented by: Bisacodyl (Dulcolax) 10 mg RECTAL ONETIME PRN PRN Reason: Constipation Calcium Carbonate/Glycine (Tums) 1,000 mg PO Q2HR PRN PRN Reason: Indigestion Last Admin: 03/16/20 11:45 Dose: 1,000 mg Documented by: Docusate Sodium (Colace) 100 mg PO BID PRN PRN Reason: Constipation Emollient Ointment (Lansinoh Hpa) 0 gm TOP ASDIRECTED PRN PRN Reason: Sore Nipples Last Admin: 03/16/20 17:14 Dose: 7 g Documented by: Ibuprofen (Motrin) 400 mg PO Q4H PRN PRN Reason: Pain Ibuprofen (Motrin) 800 mg PO Q6H PRN PRN Reason: Pain Last Admin: 03/17/20 04:57 Dose: 800 mg Documented by: Omeprazole (Omeprazole) 20 mg PO DAILY PRN PRN Reason: Indigestion Last Admin: 03/16/20 11:44 Dose: 20 mg Documented by: Sodium Chloride (Saline Flush) 10 ml FLUSH ASDIRECTED PRN PRN Reason: Keep Vein Open Sodium Chloride (Saline Flush) 2.5 ml FLUSH ASDIRECTED PRN PRN Reason: Keep Vein Open Sodium Chloride (Normal Saline) 10 ml IV ASDIRECTED PRN PRN Reason: IV Use Witch Chelsie (Tucks) 1 pad TOP ASDIRECTED PRN PRN Reason: comfort care Last Admin: 03/16/20 17:13 Dose: 1 tub Documented by: Discontinued Medications Butorphanol Tartrate (Stadol) 1 mg IVPUSH Q1H PRN PRN Reason: Pain Carboprost Tromethamine (Hemabate Ds) 250 mcg IM ASDIRECTED PRN PRN Reason: Post Hemorrhage Fentanyl (Sublimaze) Confirm Administered Dose 200 mcg .ROUTE .STK-MED ONE Stop: 03/16/20 12:33 Lactated Ringer's (Ringers, Lactated) 1,000 mls @ 150 mls/hr IV ASDIRECTED [facility] Last Admin: 03/16/20 10:40 Dose: 150 mls/hr Documented by: Oxytocin/Sodium Chloride (Oxytocin 30 Unit/500 Ml-Ns) 30 unit in 500 mls @ 999 mls/hr IV TITRATE [facility] Last Admin: 03/16/20 14:49 Dose: 500 mls/hr Documented by: Tranexamic Acid 1,000 mg/ (Sodium Chloride) 110 mls @ 660 mls/hr IV ONETIME PRN PRN Reason: Bleeding Ampicillin Sodium 2 gm/ Sodium (Chloride) 100 mls @ 200 mls/hr IV ONETIME ONE Stop: 03/16/20 09:29 Last Admin: 03/16/20 11:04 Dose: 200 mls/hr Documented by: Ampicillin Sodium 1 gm/ Sodium (Chloride) 50 mls @ 100 mls/hr IV Q4H [facility] Ropivacaine (Naropin 0.2%) Confirm Administered Dose 100 mls @ as directed .ROUTE .[facility] ONE Stop: 03/16/20 12:33 Influenza Virus Vaccine (Pharmacy To Dose - Influenza Vaccine) 1 each IM ONETIME ONE Stop: 03/16/20 14:33 Influenza Virus Vaccine (Fluzone Quad [id number] Syringe) 60 mcg IM .ONCE ONE Stop: 03/16/20 15:01 Lidocaine HCl (Xylocaine 1%) 50 ml INJECT ONETIME PRN PRN Reason: Laceration repair Methylergonovine Maleate (Methergine) 0.2 mg IM ASDIRECTED PRN PRN Reason: Post Hemorrhage Misoprostol (Cytotec) 200 mcg PO ONETIME PRN PRN Reason: Post Hemorrhage Nalbuphine HCl (Nubain) 10 mg IVPUSH Q1H PRN PRN Reason: Pain (severe 7-10) Ondansetron HCl (Zofran) 4 mg IVPUSH Q6H PRN PRN Reason: Nausea/Vomiting Sterile Water (Sterile Water For Irrigation) 1,000 ml IRR ASDIRECTED PRN PRN Reason: delivery - Interaction Infant Disposition, : at Bedside Infant Feeding: Attempted ; Nursed Fair/Poor, Bottle Fed , Continues to Breastfeed, Encouraged to Breastfeed Support Person: - Recovery Exam Fundal Tone: Firm Fundal Level: At Umbilicus Fundal Placement: Midline Lochia Amount: Moderate Lochia Color: Rubra/Red Perineum Description: Intact, Minimal Bruising/Swelling Episiotomy/Laceration: Approximated Bladder Status: Nonpalpable, Voiding Urinary Elimination: Voided - Exam General: Alert, Oriented, Cooperative, No Acute Distress HEENT: Pupils Equal, Pupils Reactive Neck: Supple Lungs: Clear to Auscultation, Normal Respiratory Effort Cardiovascular: Regular Rate, Regular Rhythm GI/Abdominal Exam: Normal Bowel Sounds, Soft, Non-Tender, No Organomegaly, No Distention Extremities: Normal Inspection, Normal Range of Motion, Non-Tender, No Pedal Edema, Normal Capillary Refill Skin: Warm, Dry, Intact Wound/Incisions: No Drainage Neurological: No New Focal Deficit Psy/Mental Status: Alert, Normal Affect, Normal Mood - Problem List & Annotations (1) Normal spontaneous vaginal delivery SNOMED Code(s): 79214879, 872441203 Code(s): O80 - ENCOUNTER FOR FULL-TERM UNCOMPLICATED DELIVERY Status: Acute Priority: High Current Visit: Yes (2) Gestational diabetes mellitus (GDM) controlled on oral hypoglycemic drug SNOMED Code(s): 42008473 Code(s): O24.415 - GESTATNL DIABETES IN PREG, CTRL BY ORAL HYPOGLYCEMIC DRUGS Status: Acute Priority: High Current Visit: Yes Qualifiers: Trimester: third trimester Qualified Code(s): O24.415 - Gestational diabetes mellitus in , controlled by oral hypoglycemic drugs (3) Lactating mother SNOMED Code(s): 037291054, 383303748 Code(s): Z39.1 - ENCOUNTER FOR CARE AND EXAMINATION OF LACTATING MOTHER Status: Acute Priority: High Current Visit: Yes - Problem List Review Problem List Initiated/Reviewed/Updated: Yes - Plan Plan:: Chelsey is a 34 yo PPD1 S/P uncomplicated to term NBF. A pos, RI, GBS pos with inadequate prophylaxis prior to . A2GDM controlled with metformin. Continue to monitor glucose. Hemodynamically stable, afebrile. Continue bottle-feeding and . RN may notify lactating support if needed. Continue Tylenol and Ibuprofen as needed for pain. Plan to D/C home this pm or tomorrow am pending patient- status this afternoon.
--- NOTE | 2020-03-18 16:54 | PCM.SN.2 ---
- Free Text/Narrative Note: 03/18/2020 1205 Patient is as follows: Chelsey is a 34 yo PPD2 S/P uncomplicated to term NBF. A pos, RI, GBS pos with inadequate prophylaxis prior to . A2GDM controlled with metformin. Hemodynamically stable, afebrile; FSBSs stable. CNM rounded on patient 03/17/2020 at ~1130 am to assess patient status and discuss POC: Planned to D/C home this pm (03/17/2020) or tomorrow am (03/18/2020) pending patient- status this afternoon. Dr. Meri Jesus then resumed call coverage 03/17/2020 from [address] Jesus rounded, was not notified of patient discharge as it was undetermined at that time. The current order was to resume care. CNM presented to floor this am to assess patient status and readiness for discharge home. Patient was discharged home with 03/17/2020 at ~1800- 1815 pm (time undetermined) following order for discharge, though patient did not have discharge summary/order placed and provider was not notified. Dr. Dobbins notified. Plan to call patient in 1-3 days to assess status and discuss warning S/Ss, when to call for help. Event notification escalated per protocol.
== END 2020-03-17 19:25 | disposition home or self-care (01) | DRG 807 ==
LOC: MW.OBCHECK 08:21 → MW.OB 08:26 → MW.OBCHECK 08:44 → MW.OB 08:44 → OBSVTOIN 14:44 → MW.OB 18:00
PROVIDERS: ADMIT Obstetrics & Gynecology; ATTEND Obstetrics & Gynecology
PROC: 10E0XZZ Delivery of Products of Conception, External Approach (ICD-10-PCS; principal; 2020-03-16)
PROC: 3E0R3BZ Introduction of Anesthetic Agent into Spinal Canal, Percutaneous Approach (ICD-10-PCS; 2020-03-16)
PROC: 00HU33Z Insertion of Infusion Device into Spinal Canal, Percutaneous Approach (ICD-10-PCS; 2020-03-16)
DX: O24.425 Gestational diabetes mellitus in childbirth, controlled by oral hypoglycemic drugs (principal); Z37.0 Single live birth; O99.824 Streptococcus B carrier state complicating childbirth; O69.81X0 Labor and delivery complicated by cord around neck, without compression, not applicable or unspecified; O16.4 Unspecified maternal hypertension, complicating childbirth; O99.334 Smoking (tobacco) complicating childbirth; F17.200 Nicotine dependence, unspecified, uncomplicated; Z20.828 Contact with and (suspected) exposure to other viral communicable diseases; Z3A.38 38 weeks gestation of pregnancy
CPT/HCPCS: 01967; 36410; 36415; 51701; 59025; 59409; 82962; 85014; 85018; 85027; 86592; 86850; 86900; 86901; A9270-GY; J0290; J2590; J2795; J3010; J7050; J7120; U0002

== ENCOUNTER 2021-11-29 16:33 | Emergency (ER) | payer SELFPAY ==
[2021-11-29 19:55] LABS: CARBON DIOXIDE,CO2 23.5 mmol/L (21.0-32.0); POTASSIUM,K 3.9 mmol/L (3.5-5.1)
[2021-11-29 22:12] LABS: C. TRACHOMATIS BY PCR NOT DETECTED; N. GONORRHOEAE BY PCR NOT DETECTED
[2021-11-30 03:41] VITALS: BP 130/64; PULSE 86
== END 2021-11-29 22:00 | disposition home or self-care (01) ==
LOC: MW.ED 16:33
DX: O20.9 Hemorrhage in early pregnancy, unspecified (principal); Z3A.11 11 weeks gestation of pregnancy; I10 Essential (primary) hypertension; Z88.5 Allergy status to narcotic agent; Z88.6 Allergy status to analgesic agent
CPT/HCPCS: 36415; 76801; 76801-26; 80053; 81001; 84702; 85025; 86900; 86901; 87480; 87491; 87510; 87591; 87660; 99284

== ENCOUNTER 2022-06-09 19:34 | Inpatient (IN) | payer SELFPAY ==
[2022-06-09] MEDS: Lactated Ringers 1,000 ML IV SCH (20:07)
[2022-06-09] MEDS ORDERED: Misoprostol 25 MCG (1/4 of 100 MCG) Tab VAG PRN (20:18)
[2022-06-09] MEDS ORDERED: Butorphanol 1 MG/ML SDV IVPUSH PRN (20:18)
[2022-06-09] MEDS ORDERED: Lidocaine 1% 50 ML MDV INJECT PRN (20:18)
[2022-06-09] MEDS ORDERED: Terbutaline 1 MG/ML SDV SUBCUT PRN (20:18)
[2022-06-09] MEDS ORDERED: Water For Irrigation,Sterile 1,000 ML Container IRR PRN (20:18)
[2022-06-09] MEDS ORDERED: Sodium Chloride 0.9% 20 ML SDV IV PRN (20:18)
[2022-06-09] MEDS ORDERED: Sodium Chloride 0.9% 2.5 ML Syringe FLUSH PRN (20:18)
[2022-06-09] MEDS ORDERED: Methylergonovine 0.2 MG/1 ML Amp IM PRN (20:18)
[2022-06-09] MEDS ORDERED: Sodium Chloride 0.9% 10 ML Syringe FLUSH PRN (20:18)
[2022-06-09] MEDS ORDERED: Tranexamic Acid 1,000 MG in Sodium Chloride 0.9% 100 ML IV PRN (20:18)
[2022-06-09] MEDS ORDERED: Misoprostol 200 MCG Tab PO PRN (20:18)
[2022-06-09] MEDS ORDERED: Carboprost Tromethamine 250 MCG/1 ML Amp IM PRN (20:18)
[2022-06-09] MEDS ORDERED: Oxytocin/0.9 % Sodium Chloride 30 UNIT/500 ML BAG IV SCH ×2 (20:30)
[2022-06-10] MEDS: Misoprostol 25 MCG (1/4 of 100 MCG) Tab PO SCH ×2 (01:41→06:06)
[2022-06-10] MEDS: Misoprostol 25 MCG (1/4 of 100 MCG) Tab VAG PRN ×2 (01:44→06:11)
[2022-06-10] MEDS: Lactated Ringers 1,000 ML IV SCH (01:49)
[2022-06-10] MEDS ORDERED: Phenylephrine HCl In 0.9% NaCl 1 MG/10 ML Vial IVPUSH PRN ×2 (07:41→10:31)
[2022-06-10] MEDS ORDERED: ePHEDrine 50 MG/ML SDV IVPUSH PRN ×4 (07:41→10:31)
[2022-06-10] MEDS ORDERED: Phenylephrine HCl In 0.9% NaCl 1 MG/10 ML Vial IVPUSH SCH ×2 (07:45→10:45)
[2022-06-10] MEDS ORDERED: Ropivacaine HCl/PF 400 MG in Premix Bag 1 BAG EPIDUR SCH ×2 (07:45→10:45)
[2022-06-10] MEDS ORDERED: Acetaminophen 500 MG Tab PO PRN (18:00)
[2022-06-10] MEDS ORDERED: Docusate Sodium 100 MG Cap PO PRN (18:00)
[2022-06-10] MEDS ORDERED: Lanolin 100% Cream 7 GM Tube TOP PRN (18:00)
[2022-06-10] MEDS ORDERED: Ibuprofen 400 MG Tab PO PRN (18:00)
[2022-06-10] MEDS ORDERED: Bisacodyl 10 MG Supp RECTAL PRN (18:00)
[2022-06-10] MEDS ORDERED: Benzocaine/Menthol 20%-0.5% Spray 78 GM Cannister TOP PRN (18:00)
[2022-06-10] MEDS ORDERED: Witch Hazel Medicated Pads 40/Jar TOP PRN (18:00)
[2022-06-10] MEDS: Ibuprofen 800 MG Tab PO PRN (19:46)
[2022-06-10] MEDS: Acetaminophen 500 MG Tab PO PRN (19:47)
[2022-06-11] MEDS: Acetaminophen 500 MG Tab PO PRN (10:08)
[2022-06-11] MEDS: Ibuprofen 800 MG Tab PO PRN ×2 (12:45→23:19)
[2022-06-12] MEDS: Ibuprofen 800 MG Tab PO PRN (06:48)
[2022-06-12 07:58] VITALS: BP 153/80; PULSE 84
== END 2022-06-12 14:40 | disposition home or self-care (01) | DRG 807 ==
LOC: MW.OBCHECK 19:34 → MW.OB 19:35 → MW.OBCHECK 20:17 → MW.OB 20:18 → OBSVTOIN 06-10 17:41 → MW.OB 06-10 20:09
PROVIDERS: ADMIT Obstetrics & Gynecology; ATTEND Obstetrics & Gynecology Obstetrics
PROC: 10E0XZZ Delivery of Products of Conception, External Approach (ICD-10-PCS; principal; 2022-06-10)
PROC: 10907ZC Drainage of Amniotic Fluid, Therapeutic from Products of Conception, Via Natural or Artificial Opening (ICD-10-PCS; 2022-06-10)
PROC: 3E0R3BZ Introduction of Anesthetic Agent into Spinal Canal, Percutaneous Approach (ICD-10-PCS; 2022-06-10)
PROC: 00HU33Z Insertion of Infusion Device into Spinal Canal, Percutaneous Approach (ICD-10-PCS; 2022-06-10)
DX: O16.4 Unspecified maternal hypertension, complicating childbirth (principal); Z37.0 Single live birth; Z3A.39 39 weeks gestation of pregnancy; O99.334 Smoking (tobacco) complicating childbirth; F17.200 Nicotine dependence, unspecified, uncomplicated; O66.0 Obstructed labor due to shoulder dystocia; Z20.822 Contact with and (suspected) exposure to COVID-19
CPT/HCPCS: 01967; 36415; 85014; 85018; 85027; 86592; 86850; 86900; 86901; 86902; 86920; 86921; 86922; A9270-GY; J0595; J2590; J7120; U0002

== ENCOUNTER 2023-02-19 08:00 | Observation (INO) | payer BC ==
[2023-02-19] MEDS ORDERED: Ondansetron 4 MG/2 ML SDV IVPUSH ONE (08:22)
[2023-02-19] MEDS ORDERED: Sodium Chloride 0.9% 1,000 ML IV ONE (08:22)
[2023-02-19] MEDS ORDERED: Ketorolac 30 MG/ML SDV IVPUSH ONE (08:22)
[2023-02-19] MEDS ORDERED: Morphine 4 MG/ML Syringe IVPUSH ONE ×3 (08:48→11:15)
[2023-02-19 09:33] LABS: BASOPHILS PERCENT AUTO 0.1 % (0.0-1.5); EOSINOPHILS ABSOLUTE AUTO 1.1 K/uL (0.0-0.7); HEMATOCRIT 37.7 % (36.0-46.0); HEMOGLOBIN 11.8 g/dL (12.0-16.0); MEAN CORPUSCULAR HEMOGLOBIN 28.4 pg (27.0-32.0); MEAN CORPUSCULAR HGB CONC 31.3 g/dL (31.0-37.0); MEAN CORPUSCULAR VOLUME 90.6 fL (80.0-98.0); MONOCYTES ABSOLUTE AUTO 0.8 K/uL (0.0-0.8); MONOCYTES PERCENT AUTO 5.5 % (0.0-15.0); NEUTROPHILS ABSOLUTE AUTO 10.2 K/uL (1.4-5.7); NEUTROPHILS PERCENT AUTO 67.4 % (48.0-80.0); NRBC ABSOLUTE 0 K/uL; PLATELET COUNT,PLT 334 K/uL (150-400); RED BLOOD CELL COUNT 4.16 M/uL (4.30-5.90); WHITE BLOOD CELL COUNT,WBC 15.18 K/uL (4.0-11.0)
[2023-02-19 09:45] LABS: A/G RATIO 0.8 (0.9-1.6); BILIRUBIN TOTAL 0.3 mg/dL (0.2-1.0); CALCIUM 8.7 mg/dL (8.5-10.1); CARBON DIOXIDE,CO2 27.4 mmol/L (21.0-32.0); CREATININE 0.7 mg/dL (0.6-1.0); EST CRCL DRUG DOSING (CG) 109.92 mL/min; MAGNESIUM 1.6 mg/dL (1.8-2.4); POTASSIUM,K 4.5 mmol/L (3.5-5.1); PROTEIN TOTAL,TP 6.9 g/dL (6.4-8.2)
[2023-02-19 09:59] LABS: APPEARANCE,URINE CLEAR; BILIRUBIN,URINE NEGATIVE (NEGATIVE); COLOR,URINE YELLOW; GLUCOSE,URINE NEGATIVE (NEGATIVE); KETONES,URINE NEGATIVE (NEGATIVE); LEUKOCYTE ESTERASE,URINE NEGATIVE (NEGATIVE); NITRITE,URINE NEGATIVE (NEGATIVE); OCCULT BLOOD,URINE NEGATIVE (NEGATIVE); PROTEIN,URINE NEGATIVE (NEGATIVE); UROBILINOGEN,URINE 0.2 EU/dL (<2.0)
[2023-02-19] MEDS ORDERED: Iopamidol 755 MG/ML 500 ML Multipack Bottle IVPUSH STA (10:06)
[2023-02-19] MEDS ORDERED: HYDROmorphone 1 MG/ML Syringe IVPUSH ONE ×2 (12:03→12:33)
[2023-02-19] MEDS ORDERED: Acetaminophen 500 MG Tab PO PRN (14:52)
[2023-02-19] MEDS ORDERED: metroNIDAZOLE/Normal Saline 500 MG in Premix Bag 1 BAG IV SCH (14:52)
[2023-02-19] MEDS ORDERED: HYDROmorphone 1 MG/ML Syringe IVPUSH PRN (14:52)
[2023-02-19] MEDS ORDERED: Enoxaparin 40 MG/0.4 ML Syringe SUBCUT SCH (16:00)
[2023-02-19] MEDS ORDERED: LORazepam 2 MG/ML SDV IV ONE (16:10)
[2023-02-19] MEDS ORDERED: LORazepam 2 MG/ML SDV ONE (16:15)
[2023-02-19] MEDS: Sodium Chloride 0.9% 1,000 ML IV SCH (17:08)
[2023-02-19] MEDS: metroNIDAZOLE/Normal Saline 500 MG in Premix Bag 1 BAG IV SCH ×2 (17:09→23:45)
[2023-02-19] MEDS: Ciprofloxacin in D5W 400 MG in Premix Bag 1 BAG IV SCH ×2 (17:12)
[2023-02-19] MEDS: Ondansetron 4 MG/2 ML SDV IVPUSH PRN (18:02)
[2023-02-19] MEDS ORDERED: Magnesium Sulfate/Water 2 GM in Premix Bag 1 BAG IV ONE (18:11)
[2023-02-19] MEDS: oxyCODONE 5 MG Tab PO PRN (18:45)
[2023-02-19] MEDS: HYDROmorphone 1 MG/ML Syringe IVPUSH PRN (20:21)
[2023-02-20] MEDS: Ciprofloxacin in D5W 400 MG in Premix Bag 1 BAG IV SCH ×4 (02:49→16:49)
[2023-02-20] MEDS: HYDROmorphone 1 MG/ML Syringe IVPUSH PRN ×6 (02:58→21:30)
[2023-02-20] MEDS: Sodium Chloride 0.9% 1,000 ML IV SCH ×2 (04:09→21:40)
[2023-02-20 05:59] LABS: BASOPHILS PERCENT AUTO 0.2 % (0.0-1.5); EOSINOPHILS ABSOLUTE AUTO 1.2 K/uL (0.0-0.7); EOSINOPHILS PERCENT AUTO 9.8 % (0.0-7.0); HEMATOCRIT 33.8 % (36.0-46.0); HEMOGLOBIN 10.6 g/dL (12.0-16.0); LYMPHOCYTES ABSOLUTE AUTO 2.8 K/uL (0.6-2.4); MEAN CORPUSCULAR HEMOGLOBIN 28.5 pg (27.0-32.0); MEAN CORPUSCULAR HGB CONC 31.4 g/dL (31.0-37.0); MEAN CORPUSCULAR VOLUME 90.9 fL (80.0-98.0); MONOCYTES ABSOLUTE AUTO 0.7 K/uL (0.0-0.8); MONOCYTES PERCENT AUTO 5.6 % (0.0-15.0); NEUTROPHILS ABSOLUTE AUTO 7.4 K/uL (1.4-5.7); NEUTROPHILS PERCENT AUTO 61.4 % (48.0-80.0); NRBC ABSOLUTE 0 K/uL; PLATELET COUNT,PLT 288 K/uL (150-400); RED BLOOD CELL COUNT 3.72 M/uL (4.30-5.90); WHITE BLOOD CELL COUNT,WBC 11.98 K/uL (4.0-11.0)
[2023-02-20 06:30] LABS: A/G RATIO 0.7 (0.9-1.6); ALBUMIN 2.7 g/dL (3.4-5.0); BILIRUBIN TOTAL 0.2 mg/dL (0.2-1.0); CALCIUM 7.7 mg/dL (8.5-10.1); CARBON DIOXIDE,CO2 27.6 mmol/L (21.0-32.0); CREATININE 0.8 mg/dL (0.6-1.0); EST CRCL DRUG DOSING (CG) 96.18 mL/min; PROTEIN TOTAL,TP 6.4 g/dL (6.4-8.2)
[2023-02-20] MEDS: metroNIDAZOLE/Normal Saline 500 MG in Premix Bag 1 BAG IV SCH ×2 (07:40→19:57)
[2023-02-20] MEDS: Ondansetron 4 MG/2 ML SDV IVPUSH PRN ×2 (07:47→14:53)
[2023-02-20] MEDS ORDERED: propofoL 50 ML ONE (11:25)
[2023-02-20] MEDS ORDERED: Dexmedetomidine 200 MCG/2 ML SDV ONE (11:25)
[2023-02-20] MEDS ORDERED: fentaNYL 250 MCG/5 ML SDV ONE (11:25)
[2023-02-20] MEDS ORDERED: Rocuronium Bromide 50 MG/5 ML Syringe ONE ×2 (11:25→12:23)
[2023-02-20] MEDS ORDERED: Water For Injection, Sterile 20 ML ONE (11:27)
[2023-02-20] MEDS ORDERED: Ropivacaine 0.5% 5 MG/ML 30 ML SDV ONE (11:35)
[2023-02-20] MEDS ORDERED: Bupivacaine 0.25% 30 ML SDV ONE ×2 (11:36→11:37)
[2023-02-20] MEDS ORDERED: Indocyanine Green 25 MG SDV ONE (12:13)
[2023-02-20] MEDS ORDERED: Ketamine 500 mg/10 ML MDV ONE (12:27)
[2023-02-20] MEDS ORDERED: Phenylephrine HCl 0.5 MG/5 ML AMP ONE (12:33)
[2023-02-20] MEDS ORDERED: Dexamethasone 4 MG/ML 5 ML MDV ONE (12:36)
[2023-02-20] MEDS ORDERED: Ketorolac 30 MG/ML SDV ONE (13:37)
[2023-02-20] MEDS ORDERED: Ondansetron 4 MG/2 ML SDV ONE (13:37)
[2023-02-20] MEDS ORDERED: Sugammadex Sodium 200 MG/2 ML VIAL ONE (13:37)
[2023-02-20] MEDS ORDERED: Propofol 200 MG/20 ML SDV ONE (13:50)
[2023-02-20] MEDS ORDERED: Naloxone 0.4 MG/ML SDV IVPUSH PRN (14:42)
[2023-02-20] MEDS ORDERED: fentaNYL 50 MCG/ML SDV IVPUSH PRN (14:42)
[2023-02-20] MEDS ORDERED: Ondansetron 4 MG/2 ML SDV IVPUSH PRN (14:42)
[2023-02-20] MEDS ORDERED: Metoclopramide 10 MG/2 ML SDV IVPUSH PRN (14:42)
[2023-02-20] MEDS ORDERED: Albuterol 0.083% 2.5 MG/3 ML Neb Soln NEB PRN (14:42)
[2023-02-20] MEDS ORDERED: HYDROmorphone 1 MG/ML Syringe IVPUSH PRN (14:42)
[2023-02-20] MEDS ORDERED: Morphine 2 MG/ML SYRINGE IVPUSH PRN (14:42)
[2023-02-20] MEDS ORDERED: droPERidol 5 MG/2 ML SDV IVPUSH PRN (14:42)
[2023-02-20] MEDS: oxyCODONE 5 MG Tab PO PRN (17:36)
[2023-02-21] MEDS: metroNIDAZOLE/Normal Saline 500 MG in Premix Bag 1 BAG IV SCH ×3 (01:25→12:36)
[2023-02-21] MEDS: oxyCODONE 5 MG Tab PO PRN ×2 (01:35→10:22)
[2023-02-21] MEDS: Ciprofloxacin in D5W 400 MG in Premix Bag 1 BAG IV SCH ×2 (04:01)
[2023-02-21] MEDS: HYDROmorphone 1 MG/ML Syringe IVPUSH PRN ×2 (04:42→08:35)
[2023-02-21 05:46] LABS: BASOPHILS PERCENT AUTO 0.1 % (0.0-1.5); HEMATOCRIT 34.1 % (36.0-46.0); HEMOGLOBIN 10.6 g/dL (12.0-16.0); LYMPHOCYTES ABSOLUTE AUTO 1.8 K/uL (0.6-2.4); LYMPHOCYTES PERCENT AUTO 7.7 % (16.0-40.0); MEAN CORPUSCULAR HGB CONC 31.1 g/dL (31.0-37.0); MONOCYTES PERCENT AUTO 4.4 % (0.0-15.0); NEUTROPHILS ABSOLUTE AUTO 20.1 K/uL (1.4-5.7); NEUTROPHILS PERCENT AUTO 87.8 % (48.0-80.0); NRBC ABSOLUTE 0 K/uL; PLATELET COUNT,PLT 322 K/uL (150-400); RED BLOOD CELL COUNT 3.79 M/uL (4.30-5.90); WHITE BLOOD CELL COUNT,WBC 22.83 K/uL (4.0-11.0)
[2023-02-21 06:09] LABS: A/G RATIO 0.7 (0.9-1.6); ALBUMIN 2.6 g/dL (3.4-5.0); BILIRUBIN TOTAL 0.2 mg/dL (0.2-1.0); CALCIUM 7.7 mg/dL (8.5-10.1); CREATININE 0.8 mg/dL (0.6-1.0); EST CRCL DRUG DOSING (CG) 96.18 mL/min; POTASSIUM,K 3.9 mmol/L (3.5-5.1); PROTEIN TOTAL,TP 6.3 g/dL (6.4-8.2)
[2023-02-21] MEDS: Sodium Chloride 0.9% 1,000 ML IV SCH (08:40)
[2023-02-21] MEDS ORDERED: Sodium Chloride 0.9% 500 ML IV ONE (09:48)
[2023-02-21] MEDS ORDERED: metroNIDAZOLE/Normal Saline 0 ML ONE (10:32)
[2023-02-21 12:12] VITALS: BP 146/79; PULSE 91
== END 2023-02-21 12:20 | disposition home or self-care (01) ==
LOC: MW.ED 08:00 → MW.MS 13:42
PROVIDERS: ADMIT Internal Medicine; ATTEND Internal Medicine
DX: K80.12 Calculus of gallbladder with acute and chronic cholecystitis without obstruction (principal); E66.01 Morbid (severe) obesity due to excess calories; R68.83 Chills (without fever); E78.5 Hyperlipidemia, unspecified; F41.9 Anxiety disorder, unspecified; F32.A Depression, unspecified; Z88.5 Allergy status to narcotic agent; Z88.8 Allergy status to other drugs, medicaments and biological substances; Z79.899 Other long term (current) drug therapy
CPT/HCPCS: 36415; 47562; 74177; 74181; 76705; 80053; 81003; 83605; 83690; 83735; 84703; 85025; 87040; 96361; 96365; 96366; 96367; 96368; 96372; 96375; 96376; 99285; A9270; G0378; J0131; J0744; J1100; J1170; J1650; J1885; J2060; J2270; J2371; J2405; J2704; J2795; J3010; J3475; J3490; J7030; J7040; Q9967; 00790; 64488; 96374; 99222; 99232; 99239; 99284

== ENCOUNTER 2023-03-04 09:48 | Emergency (ER) | payer BC ==
[2023-03-04] MEDS ORDERED: Sodium Chloride 0.9% 2.5 ML Syringe FLUSH PRN (10:07)
[2023-03-04] MEDS ORDERED: Sodium Chloride 0.9% 10 ML Syringe FLUSH PRN (10:07)
[2023-03-04] MEDS ORDERED: Sodium Chloride 0.9% 1,000 ML IV STA (10:19)
[2023-03-04] MEDS ORDERED: Ondansetron 4 MG/2 ML SDV IVPUSH STA (10:19)
[2023-03-04 10:21] LABS: BILIRUBIN,URINE NEGATIVE (NEGATIVE); COLOR,URINE YELLOW; GLUCOSE,URINE NEGATIVE (NEGATIVE); KETONES,URINE NEGATIVE (NEGATIVE); LEUKOCYTE ESTERASE,URINE SMALL (NEGATIVE); NITRITE,URINE NEGATIVE (NEGATIVE); OCCULT BLOOD,URINE NEGATIVE (NEGATIVE); PROTEIN,URINE NEGATIVE (NEGATIVE); UROBILINOGEN,URINE 0.2 EU/dL (<2.0)
[2023-03-04 10:32] LABS: HEMATOCRIT 37.1 % (37.0-47.0); HEMOGLOBIN 12.2 g/dL (12.0-16.0); MEAN CORPUSCULAR HEMOGLOBIN 28.8 pg (28.0-32.0); MEAN CORPUSCULAR HGB CONC 32.9 g/dL (32.0-36.0); MEAN CORPUSCULAR VOLUME 87.5 fL (83.0-99.0); MEAN PLATELET VOLUME 9.3 fL (9.4-12.3); PLATELET COUNT,PLT 331 K/uL (150-400); RED BLOOD CELL COUNT 4.24 M/uL (4.10-5.30); WHITE BLOOD CELL COUNT,WBC 19.54 K/uL (3.9-11.3)
[2023-03-04 10:35] LABS: APPEARANCE,URINE SLT CLOUDY
[2023-03-04 10:36] LABS: BACTERIA,URINE MANY (NEGATIVE); EPITHELIAL CELLS,URINE MODERATE (NONE-FEW)
[2023-03-04] MEDS ORDERED: Alum Hydro/Mag Hydro/Simeth XS 15 ML, Lidocaine 2% 5 ML PO STA ×2 (10:37)
[2023-03-04 10:51] LABS: ALBUMIN 3.5 g/dL (3.4-5.0); BILIRUBIN TOTAL 0.2 mg/dL (0.2-1.0); CALCIUM 8.7 mg/dL (8.5-10.1); CREATININE 0.8 mg/dL (0.6-1.0); EST CRCL DRUG DOSING (CG) 96.18 mL/min; POTASSIUM,K 3.9 mmol/L (3.5-5.1)
[2023-03-04 10:54] LABS: MAGNESIUM 1.8 mg/dL (1.8-2.4)
[2023-03-04] MEDS ORDERED: HYDROmorphone 1 MG/ML Syringe IVPUSH STA (11:01)
[2023-03-04 11:42] LABS: EOSINOPHILS ABSOLUTE MAN 2.3 (0.0-0.7); EOSINOPHILS PERCENT MAN 12 % (0.0-7.0); LYMPHOCYTES ABSOLUTE MAN 4.5 (0.6-2.4); LYMPHOCYTES PERCENT MAN 23 % (16.0-40.0); MONOCYTES PERCENT MAN 5 % (0.0-15.0); SEG NEUTROPHILS ABSOLUTE MAN 11.7 (1.4-5.7); SEG NEUTROPHILS PERCENT MAN 60 % (48.0-80.0)
[2023-03-04] MEDS ORDERED: Iopamidol 755 MG/ML 500 ML Multipack Bottle IVPUSH STA (12:00)
[2023-03-04] MEDS ORDERED: droPERidol 5 MG/2 ML SDV IVPUSH STA (12:26)
[2023-03-04 14:10] VITALS: BP 145/82; PULSE 79
== END 2023-03-04 14:08 | disposition home or self-care (01) ==
LOC: MW.ED 09:48
DX: R10.11 Right upper quadrant pain (principal); R10.13 Epigastric pain; I10 Essential (primary) hypertension; Z86.16 Personal history of COVID-19; Z79.899 Other long term (current) drug therapy; Z88.1 Allergy status to other antibiotic agents; Z88.8 Allergy status to other drugs, medicaments and biological substances
CPT/HCPCS: 36415; 74177; 80053; 81001; 81025; 83605; 83690; 83735; 84484; 85025; 87086; 93005; 96361; 96374; 96375; 99284; A9270; J1170; J1790; J2405; J3490; J7030; Q9967; 93010

== ENCOUNTER 2024-01-25 02:05 | Emergency (ER) | payer BC ==
[2024-01-25] MEDS ORDERED: Sodium Chloride 0.9% 20 ML SDV IV PRN (02:14)
[2024-01-25 03:10] LABS: HEMATOCRIT 39.2 % (37.0-47.0); HEMOGLOBIN 12.8 g/dL (12.0-16.0); MEAN CORPUSCULAR HEMOGLOBIN 28.1 pg (28.0-32.0); MEAN CORPUSCULAR HGB CONC 32.7 g/dL (32.0-36.0); MEAN CORPUSCULAR VOLUME 86.2 fL (83.0-99.0); MEAN PLATELET VOLUME 9.4 fL (9.4-12.3); PLATELET COUNT,PLT 306 K/uL (150-400); RED BLOOD CELL COUNT 4.55 M/uL (4.10-5.30); WHITE BLOOD CELL COUNT,WBC 17.83 K/uL (3.9-11.3)
[2024-01-25] MEDS: Sodium Chloride 0.9% 2.5 ML Syringe FLUSH PRN (03:11)
[2024-01-25] MEDS: Sodium Chloride 0.9% 10 ML Syringe FLUSH PRN (03:11)
[2024-01-25] MEDS: Sodium Chloride 0.9% 1,000 ML IV ONE (03:11)
[2024-01-25 03:31] LABS: A/G RATIO 0.9 (0.9-1.6); ALBUMIN 3.4 g/dL (3.4-5.0); BILIRUBIN TOTAL 0.2 mg/dL (0.2-1.0); CALCIUM 9.2 mg/dL (8.5-10.1); CARBON DIOXIDE,CO2 27.7 mmol/L (21.0-32.0); CREATININE 0.9 mg/dL (0.6-1.0); EST CRCL DRUG DOSING (CG) 81.61 mL/min; MAGNESIUM 1.9 mg/dL (1.8-2.4); POTASSIUM,K 4.1 mmol/L (3.5-5.1); PROTEIN TOTAL,TP 7.4 g/dL (6.4-8.2)
[2024-01-25] MEDS: Ketorolac 30 MG/ML SDV IVPUSH ONE (03:55)
[2024-01-25 04:03] LABS: EOSINOPHILS ABSOLUTE MAN 0.36 K/uL (0.00-0.45); EOSINOPHILS PERCENT MAN 2 % (0-6); LYMPHOCYTES ABSOLUTE MAN 4.28 K/uL (1.00-4.80); LYMPHOCYTES PERCENT MAN 24 % (24-44); MONOCYTES ABSOLUTE MAN 1.25 K/uL (0.00-0.80); MONOCYTES PERCENT MAN 7 % (0-8); SEG NEUTROPHILS ABSOLUTE MAN 11.95 K/uL (1.80-7.70); SEG NEUTROPHILS PERCENT MAN 67 % (41-71)
[2024-01-25 04:36] LABS: CORONAVIRUS COVID-19 NAA NEGATIVE (NEGATIVE); INFLUENZA A NAA NEGATIVE (NEGATIVE); INFLUENZA B NAA NEGATIVE (NEGATIVE); RESPIRATORY SYNCYTIAL VIR NAA NEGATIVE (NEGATIVE)
[2024-01-25 04:50] VITALS: BP 149/78; PULSE 94
== END 2024-01-25 05:05 | disposition home or self-care (01) ==
LOC: MW.ED 02:05
DX: R00.2 Palpitations (principal); R07.89 Other chest pain; E66.9 Obesity, unspecified; Z86.16 Personal history of COVID-19; Z82.49 Family history of ischemic heart disease and other diseases of the circulatory system; Z90.49 Acquired absence of other specified parts of digestive tract; Z79.899 Other long term (current) drug therapy; Z88.5 Allergy status to narcotic agent; Z68.39 Body mass index [BMI] 39.0-39.9, adult
CPT/HCPCS: 0241U; 36415; 71045; 80053; 83690; 83735; 83880; 84484; 85025; 93005; 96361; 96374; 99285; J1885; J3490; J7030; 93010

== ENCOUNTER 2024-03-11 17:18 | Emergency (ER) | payer BC ==
[2024-03-11] MEDS: Acetaminophen/HYDROcodone 325-5 MG Tab PO ONE (19:22)
[2024-03-11] MEDS: Famotidine 20 MG Tab PO ONE (19:22)
[2024-03-11] MEDS: Ondansetron 4 MG Tab.DIS PO ONE (19:22)
[2024-03-11 19:31] LABS: APPEARANCE,URINE CLEAR; BILIRUBIN,URINE NEGATIVE (NEGATIVE); COLOR,URINE YELLOW; GLUCOSE,URINE NEGATIVE (NEGATIVE); KETONES,URINE NEGATIVE (NEGATIVE); LEUKOCYTE ESTERASE,URINE NEGATIVE (NEGATIVE); NITRITE,URINE NEGATIVE (NEGATIVE); OCCULT BLOOD,URINE NEGATIVE (NEGATIVE); PROTEIN,URINE NEGATIVE (NEGATIVE); UROBILINOGEN,URINE 0.2 EU/dL (<2.0)
[2024-03-11 19:47] LABS: BASOPHILS ABSOLUTE AUTO 0.04 K/uL (0.00-0.20); BASOPHILS PERCENT AUTO 0.3 % (0.0-1.0); EOSINOPHILS ABSOLUTE AUTO 0.36 K/uL (0.00-0.45); EOSINOPHILS PERCENT AUTO 2.3 % (0.0-6.0); HEMATOCRIT 38.7 % (37.0-47.0); HEMOGLOBIN 12.4 g/dL (12.0-16.0); IMMATURE GRAN ABSOLUTE AUTO 0.06 K/uL (0.00-0.05); IMMATURE GRAN PERCENT AUTO 0.4 % (0.0-0.4); LYMPHOCYTES PERCENT AUTO 29.7 % (24.0-44.0); MEAN CORPUSCULAR HEMOGLOBIN 27.9 pg (28.0-32.0); MEAN PLATELET VOLUME 9.4 fL (9.4-12.3); MONOCYTES ABSOLUTE AUTO 0.78 K/uL (0.00-0.80); MONOCYTES PERCENT AUTO 4.9 % (0.0-8.0); NEUTROPHILS ABSOLUTE AUTO 9.88 K/uL (1.80-7.70); NEUTROPHILS PERCENT AUTO 62.4 % (41.0-71.0); PLATELET COUNT,PLT 357 K/uL (150-400); RED BLOOD CELL COUNT 4.45 M/uL (4.10-5.30); WHITE BLOOD CELL COUNT,WBC 15.82 K/uL (3.9-11.3)
[2024-03-11 20:00] LABS: A/G RATIO 0.9 (0.9-1.6); ALBUMIN 3.5 g/dL (3.4-5.0); BILIRUBIN TOTAL 0.2 mg/dL (0.2-1.0); CALCIUM 8.6 mg/dL (8.5-10.1); CARBON DIOXIDE,CO2 26.5 mmol/L (21.0-32.0); CREATININE 0.7 mg/dL (0.6-1.0); EST CRCL DRUG DOSING (CG) 108.85 mL/min; PROTEIN TOTAL,TP 7.5 g/dL (6.4-8.2)
[2024-03-11] MEDS ORDERED: Sodium Chloride 0.9% 10 ML Syringe FLUSH PRN (20:25)
[2024-03-11] MEDS ORDERED: Sodium Chloride 0.9% 2.5 ML Syringe FLUSH PRN (20:25)
[2024-03-11 21:04] VITALS: BP 153/90; PULSE 97
== END 2024-03-11 20:49 | disposition home or self-care (01) ==
LOC: MW.ED 17:18
DX: R10.11 Right upper quadrant pain (principal); F17.210 Nicotine dependence, cigarettes, uncomplicated; E66.9 Obesity, unspecified; Z79.899 Other long term (current) drug therapy; Z88.1 Allergy status to other antibiotic agents; Z88.5 Allergy status to narcotic agent; Z75.8 Other problems related to medical facilities and other health care; Z68.41 Body mass index [BMI] 40.0-44.9, adult
CPT/HCPCS: 36415; 80053; 81003; 83690; 85025; 99284; A9270

== ENCOUNTER 2025-03-11 21:34 | Emergency (ER) | payer OTHER, BC ==
[2025-03-11 22:25] LABS: GLUCOSE,URINE NEGATIVE (NEGATIVE); OCCULT BLOOD,URINE NEGATIVE (NEGATIVE)
[2025-03-11 22:38] LABS: APPEARANCE,URINE CLEAR; EPITHELIAL CELLS,URINE FEW (NONE-FEW)
[2025-03-11 22:42] LABS: MEAN PLATELET VOLUME 9.4 fL (9.4-12.3); NRBC ABSOLUTE 0.00 K/uL (0.00-0.02); NRBC PERCENT 0.0 /100WBC (0.0-0.2); PLATELET COUNT,PLT 261 K/uL (150-400); RED BLOOD CELL COUNT 4.06 M/uL (4.10-5.30); WHITE BLOOD CELL COUNT,WBC 15.97 K/uL (3.9-11.3)
[2025-03-11 23:18] LABS: A/G RATIO 0.9 (0.9-1.6); ALANINE AMINOTRANSFERASE,ALT 17.0 IU/L (14-63); ASPARTATE AMNIOTRANSFERASE,AST 15.0 IU/L (15-37); BILIRUBIN TOTAL 0.2 mg/dL (0.2-1.0); BLOOD UREA NITROGEN,BUN 12.0 mg/dL (7.0-18.0); CARBON DIOXIDE,CO2 26.4 mmol/L (21.0-32.0); CHLORIDE,CL 104.0 mmol/L (98-107); CREATININE 0.7 mg/dL (0.6-1.0); EST CRCL DRUG DOSING (CG) 103.89 mL/min; GLUCOSE RANDOM 109.0 mg/dL (74-106); POTASSIUM,K 4.1 mmol/L (3.5-5.1); PROTEIN TOTAL,TP 7.2 g/dL (6.4-8.2); SODIUM,NA 140.0 mmol/L (136-145)
[2025-03-11 23:19] LABS: ESTIMATED GFR 112.0 mL/min (>60)
[2025-03-11 23:25] LABS: SEG NEUTROPHILS ABSOLUTE MAN 10.86 K/uL (1.80-7.70); SEG NEUTROPHILS PERCENT MAN 68 % (41-71)
[2025-03-11 23:26] LABS: EOSINOPHILS ABSOLUTE MAN 0.32 K/uL (0.00-0.45); EOSINOPHILS PERCENT MAN 2 % (0-6); LYMPHOCYTES ABSOLUTE MAN 3.99 K/uL (1.00-4.80); LYMPHOCYTES PERCENT MAN 25 % (24-44); MONOCYTES ABSOLUTE MAN 0.80 K/uL (0.00-0.80); MONOCYTES PERCENT MAN 5 % (0-8)
[2025-03-11] MEDS: droPERidol 2.5 MG/ML SDV IVPUSH ONE (23:33)
[2025-03-12] MEDS: Ketorolac 30 MG/ML SDV IVPUSH ONE (01:51)
[2025-03-12 02:49] VITALS: BP 103/67; PULSE 76
== END 2025-03-12 02:49 | disposition home or self-care (01) ==
LOC: MW.ED 21:34
DX: N83.202 Unspecified ovarian cyst, left side (principal); E66.9 Obesity, unspecified; Z68.42 Body mass index [BMI] 45.0-49.9, adult; Z87.42 Personal history of other diseases of the female genital tract; Z90.49 Acquired absence of other specified parts of digestive tract; Z88.5 Allergy status to narcotic agent; Z88.8 Allergy status to other drugs, medicaments and biological substances; Z79.899 Other long term (current) drug therapy; Z75.3 Unavailability and inaccessibility of health-care facilities
CPT/HCPCS: 36415; 80053; 81001; 81025; 85025; 96361; 96374; 96375; 99284; J1790; J1885; J7030; J1171